=== PATIENT | male | born 1970 | race Caucasian/White ===

== ENCOUNTER 2022-02-12 20:17 | Observation (INO) | payer OTHER ==
[2022-02-12] MEDS ORDERED: IPRATROPIUM 0.5 MG/2.5 ML NEBU INHALATION STA ×2 (20:23→21:42)
[2022-02-12] MEDS ORDERED: DEXAMETHASONE SOD PHOSPHATE 10 MG/ML 1 ML VIAL IV STA (20:23)
[2022-02-12] MEDS ORDERED: ALBUTEROL NEBULIZED 2.5 MG/3 ML INHALATION STA ×2 (20:23→21:42)
[2022-02-12 20:31] LABS: Basophils # (A) 0.1 k/uL (0-0.2); Basophils % (A) 1 %; Eosinophils # (A) 0.5 k/uL (0-0.7); Eosinophils % (A) 7 %; HCT 47.6 % (39.0-53.0); HGB 15.7 gm/dL (13.0-17.5); Lymphocytes # (A) 1.5 k/uL (1.0-4.8); Lymphocytes % (A) 22 %; MCH 30.2 pg (25.0-35.0); MCV 91.5 fL (80.0-100.0); Mean Platelet Volume 8.8; Monocytes # (A) 0.6 k/uL (0-1.0); Monocytes % (A) 9 %; Neutrophils # (A) 3.8 k/uL (1.3-7.7); Neutrophils % (A) 57 %; Platelet Count 165 k/uL (150-450); RDW 13.5 % (11.5-15.5); WBC 6.7 k/uL (3.8-10.6)
--- NOTE | 2022-02-12 20:32 | ED ---
General Adult HPI - General Chief complaint: Shortness of Breath Stated complaint: RADHA Time Seen by Provider: 02/12/22 20:22 Source: patient Mode of arrival: ambulatory Limitations: no limitations - History of Present Illness Initial comments: Dictation was produced using [employer] dictation software. please excuse any grammatical, word or spelling errors. Chief Complaint: 62-year-old male past medical history of asthma and history of tobacco use presents to the ER for shortness of breath History of Present Illness: 52-year-old male who has past medical history of asthma. At home he uses albuterol inhalers and Symbicort. Patient denies any history of COPD. Over last 2-3 days she's been having worsening shortness of breath. Denies any fever. No chest pain. He has been coughing. His cough is nonproductive. He has been trying uses inhalers at home with no significant improvement. The ROS documented in this emergency department record has been reviewed and confirmed by me. Those systems with pertinent positive or negative responses have been documented in the HPI. All other systems are other negative and/or noncontributory. PHYSICAL EXAM: General Impression: Alert and oriented x3, dyspneic, audible wheezing HEENT: Normocephalic atraumatic, extra-ocular movements intact, pupils equal and reactive to light bilaterally, mucous membranes moist. Cardiovascular: Heart regular rate and rhythm Chest: 3-4 word sentences, tachypneic, significant wheezing diffusely Abdomen: abdomen soft, non-tender, non-distended, no organomegaly Musculoskeletal: Pulses present and equal in all extremities, no peripheral edema Motor: no focal deficits noted Neurological: CN II-XII grossly intact, no focal motor or sensory deficits noted Skin: Intact with no visualized rashes Psych: Normal affect and mood ED course: 52-year-old male presents emergency department for chief complaint of dyspnea. Vital signs upon arrival are within acceptable limits. Patient not hypoxic those oxygen levels are normal with supplemental oxygen. Point of care bedside ultrasound shows a line pattern suggesting COPD versus asthma exacerbati on. EKG interpretation: Ventricular rate 86, sinus rhythm,. Interval 108, QS 90, QTC 384. No GA prolongation, no QTC prolongation, no ST or T-wave changes noted. No old EKG for comparison. Overall, this EKG is unremarkable Laboratory evaluation obtained. CBC, coag panel unremarkable. Venous blood gas is within acceptable limits. Metabolic panel shows mild acidosis likely acidos is of 2.2. Glucose 72. For panel viral PCR is negative. Chest x-ray suggests right lower lobe pneumonia. Patient given a dose of ceftriaxone and azithromycin. Reevaluate bedside at 943 on to be improve medical condition. Still wheezing. Patient is agreeable for her second breathing treatment. Patient reevaluated after second breathing treatment. Still wheezing. Disposition options were discussed. Patient agreeable for observation admission for continued breathing treatments, pulmonary consultation and medical monitoring. She'll be admitted to [facility]. - Related Data Home Medications Medication Instructions Recorded Confirmed Albuterol Nebulized [Ventolin 2.5 mg INHALATION RT-BID 02/12/22 02/12/22 Nebulized] Budesonide-Formot 160-4.5 Mcg 2 puff INHALATION RT-BID 02/12/22 02/12/22 [Symbicort 160-4.5 Mcg Inhaler] Allergies Allergy/AdvReac Type Severity Reaction Status Date / Time No Known Allergies Allergy Verified 02/12/22 21:24 Review of Systems ROS Statement: Those systems with pertinent positive or pertinent negative responses have been documented in the HPI. ROS Other: All systems not noted in ROS Statement are negative. Past Medical History Past Medical History: Asthma Additional Past Medical History / Comment(s): MRSA History of Any Multi-Drug Resistant Organisms: MRSA Past Surgical History: Appendectomy Past Psychological History: No Psychological Hx Reported Smoking Status: Former smoker Past Alcohol Use History: None Reported Past Drug Use History: None Reported General Exam Limitations: no limitations Course Vital Signs 02/12/22 02/12/22 02/12/22 20:22 20:28 20:46 Pulse Rate 87 90 96 Respiratory 22 Rate Blood Pressure 136/109 O2 Sat by Pulse 100 Oximetry 02/12/22 02/12/22 02/12/22 21:00 22:06 22:21 Pulse Rate 67 84 Respiratory 24 Rate Blood Pressure O2 Sat by Pulse Oximetry Medical Decision Making - Lab Data Result diagrams: 02/12/22 20:26 02/12/22 20:26 Lab Results 02/12/22 02/12/22 02/12/22 Range/Units 20:26 20:26 20:26 WBC 6.7 (3.8-10.6) k/uL RBC 5.20 (4.30-5.90) m/uL Hgb 15.7 (13.0-17.5) gm/dL Hct 47.6 (39.0-53.0) % MCV 91.5 (80.0-100.0) fL MCH 30.2 (25.0-35.0) pg MCHC 33.0 (31.0-37.0) g/dL RDW 13.5 (11.5-15.5) % Plt Count 165 (150-450) k/uL MPV 8.8 Neutrophils % 57 % Lymphocytes % 22 % Monocytes % 9 % Eosinophils % 7 % Basophils % 1 % Neutrophils # 3.8 (1.3-7.7) k/uL Lymphocytes # 1.5 (1.0-4.8) k/uL Monocytes # 0.6 (0-1.0) k/uL Eosinophils # 0.5 (0-0.7) k/uL Basophils # 0.1 (0-0.2) k/uL PT 10.0 (9.0-12.0) sec INR 0.9 (<1.2) APTT 24.7 (22.0-30.0) sec VBG pH (7.31-7.41) VBG pCO2 (37-51) mmHg VBG HCO3 (24-28) mmol/L Sodium 139 (137-145) mmol/L Potassium 4.3 (3.5-5.1) mmol/L Chloride 104 (98-107) mmol/L Carbon Dioxide 20 L (22-30) mmol/L Anion Gap 15 mmol/L BUN 15 (9-20) mg/dL Creatinine 1.11 (0.66-1.25) mg/dL Est GFR (CKD-EPI)AfAm 88 (>60 ml/min/1.73 sqM) Est GFR (CKD-EPI)NonAf 76 (>60 ml/min/1.73 sqM) Glucose 72 L (74-99) mg/dL Plasma Lactic Acid Can (0.7-2.0) mmol/L Calcium 8.8 (8.4-10.2) mg/dL Magnesium 1.9 (1.6-2.3) mg/dL Troponin I (0.000-0.034) ng/mL NT-Pro-B Natriuret Pep pg/mL Influenza Type A (PCR) (Not Detectd) Influenza Type B (PCR) (Not Detectd) RSV (PCR) (Not Detectd) SARS-CoV-2 (PCR) (Not Detectd) 02/12/22 02/12/22 02/12/22 Range/Units 20:26 20:26 20:26 WBC (3.8-10.6) k/uL RBC (4.30-5.90) m/uL Hgb (13.0-17.5) gm/dL Hct (39.0-53.0) % MCV (80.0-100.0) fL MCH (25.0-35.0) pg MCHC (31.0-37.0) g/dL RDW (11.5-15.5) % Plt Count (150-450) k/uL MPV Neutrophils % % Lymphocytes % % Monocytes % % Eosinophils % % Basophils % % Neutrophils # (1.3-7.7) k/uL Lymphocytes # (1.0-4.8) k/uL Monocytes # (0-1.0) k/uL Eosinophils # (0-0.7) k/uL Basophils # (0-0.2) k/uL PT (9.0-12.0) sec INR (<1.2) APTT (22.0-30.0) sec VBG pH (7.31-7.41) VBG pCO2 (37-51) mmHg VBG HCO3 (24-28) mmol/L Sodium (137-145) mmol/L Potassium (3.5-5.1) mmol/L Chloride (98-107) mmol/L Carbon Dioxide (22-30) mmol/L Anion Gap mmol/L BUN (9-20) mg/dL Creatinine (0.66-1.25) mg/dL Est GFR (CKD-EPI)AfAm (>60 ml/min/1.73 sqM) Est GFR (CKD-EPI)NonAf (>60 ml/min/1.73 sqM) Glucose (74-99) mg/dL Plasma Lactic Acid Can 2.5 H* (0.7-2.0) mmol/L Calcium (8.4-10.2) mg/dL Magnesium (1.6-2.3) mg/dL Troponin I <0.012 (0.000-0.034) ng/mL NT-Pro-B Natriuret Pep 129 pg/mL Influenza Type A (PCR) (Not Detectd) Influenza Type B (PCR) (Not Detectd) RSV (PCR) (Not Detectd) SARS-CoV-2 (PCR) (Not Detectd) 02/12/22 02/12/22 Range/Units 20:34 20:34 WBC (3.8-10.6) k/uL RBC (4.30-5.90) m/uL Hgb (13.0-17.5) gm/dL Hct (39.0-53.0) % MCV (80.0-100.0) fL MCH (25.0-35.0) pg MCHC (31.0-37.0) g/dL RDW (11.5-15.5) % Plt Count (150-450) k/uL MPV Neutrophils % % Lymphocytes % % Monocytes % % Eosinophils % % Basophils % % Neutrophils # (1.3-7.7) k/uL Lymphocytes # (1.0-4.8) k/uL Monocytes # (0-1.0) k/uL Eosinophils # (0-0.7) k/uL Basophils # (0-0.2) k/uL PT (9.0-12.0) sec INR (<1.2) APTT (22.0-30.0) sec VBG pH 7.41 (7.31-7.41) VBG pCO2 35 L (37-51) mmHg VBG HCO3 22 L (24-28) mmol/L Sodium (137-145) mmol/L Potassium (3.5-5.1) mmol/L Chloride (98-107) mmol/L Carbon Dioxide (22-30) mmol/L Anion Gap mmol/L BUN (9-20) mg/dL Creatinine (0.66-1.25) mg/dL Est GFR (CKD-EPI)AfAm (>60 ml/min/1.73 sqM) Est GFR (CKD-EPI)NonAf (>60 ml/min/1.73 sqM) Glucose (74-99) mg/dL Plasma Lactic Acid Can (0.7-2.0) mmol/L Calcium (8.4-10.2) mg/dL Magnesium (1.6-2.3) mg/dL Troponin I (0.000-0.034) ng/mL NT-Pro-B Natriuret Pep pg/mL Influenza Type A (PCR) Not Detected (Not Detectd) Influenza Type B (PCR) Not Detected (Not Detectd) RSV (PCR) Not Detected (Not Detectd) SARS-CoV-2 (PCR) Not Detected (Not Detectd) Disposition Clinical Impression: COPD (chronic obstructive pulmonary disease) Disposition: ADMITTED IP TO THIS HOSP Condition: Fair Referrals: None,Stated [Primary Care Provider] - 1-2 days Decision Time: 22:41
[2022-02-12 20:41] LABS: INR 0.9 (<1.2); Partial Thromboplastin Time 24.7 sec (22.0-30.0)
[2022-02-12 20:43] LABS: Calcium 8.8 mg/dL (8.4-10.2); Magnesium 1.9 mg/dL (1.6-2.3); Potassium 4.3 mmol/L (3.5-5.1)
[2022-02-12 20:46] LABS: VBG PH 7.41 (7.31-7.41)
--- NOTE | 2022-02-12 21:39 | XR ---
EXAMINATION TYPE: XR chest 1V portable DATE OF EXAM: 02/12/2022 8:52 PM COMPARISON: None TECHNIQUE: XR chest 1V portable Frontal view of the chest. CLINICAL INDICATION:Male, 52 years old with history of wheezing; FINDINGS: Lungs/Pleura: Right lower lobe airspace opacities. There is no evidence of pleural effusion, or pneum othorax. Pulmonary vascularity: Unremarkable. Heart/mediastinum: Cardiomediastinal silhouette is unremarkable. Musculoskeletal: No acute osseous pathology. IMPRESSION: Subtle right lower lobe airspace opacities correlate for pneumonia
[2022-02-12] MEDS ORDERED: cefTRIAXone IN SWFI 1,000 MG/10 ML SYRINGE IVP STA (21:40)
[2022-02-12] MEDS ORDERED: NALOXONE 0.4 MG/ML 1 ML VIAL IVP PRN (22:38)
[2022-02-12] MEDS ORDERED: AZITHROMYCIN 500 MG TAB PO ONE (22:45)
[2022-02-12] MEDS ORDERED: SODIUM CHLORIDE 0.9% 1,000 ML IV STA (23:28)
[2022-02-12] MEDS ORDERED: SODIUM CHLORIDE 0.9% 1,000 ML IV ONE (23:29)
[2022-02-13] MEDS ORDERED: ALPRAZolam 0.25 MG TAB PO PRN (00:44)
--- NOTE | 2022-02-13 00:47 | P.HPIM ---
History of Present Illness H&P Date: 02/12/22 Chief Complaint: Difficulty in breathing 52-year-old male with asthma Patient normally uses albuterol inhaler twice a day and Symbicort every day. 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 He admits to tobacco smoking however he hasn't been able to smoke over the past 2 weeks as he was getting increasingly short of breath and over the past 3-5 days shortness of breath progressed rapidly and became very significant associated with cough productive of clear sputum he feels congested all the time and wheezy denies any fevers or chills denies any known sick contacts denies any hemoptysis denies any weight loss. Today his breathing got really bad severe shortness of breath and wheezing for which she decided to come to the hospital for evaluation. Patient does admit to recurrent episodes of pneumonia and history of coronary artery disease when he was young his early 20s which runs in the family He denies any recent travel or hospitalization denies any history of blood clots heart failure. Patient does have [id number] smoking history Workup in the ED chest x-ray showed possibility of suicidal changes on the x-ray suggestive of possible pneumonia, lactic acid was elevated Covid and influenza both negative Review of Systems Pertinent positives as noted in HPI. All other systems were reviewed and are negative Past Medical History Past Medical History: Asthma Additional Past Medical History / Comment(s): MRSA History of Any Multi-Drug Resistant Organisms: MRSA Past Surgical History: Appendectomy Past Psychological History: No Psychological Hx Reported Smoking Status: Former smoker Past Alcohol Use History: None Reported Past Drug Use History: None Reported - Past Family History Family Family Medical History: Coronary Artery Disease (CAD) Medications and Allergies Home Medications Medication Instructions Recorded Confirmed Type Albuterol Nebulized [Ventolin 2.5 mg INHALATION RT-BID 02/12/22 02/12/22 History Nebulized] Budesonide-Formot 160-4.5 Mcg 2 puff INHALATION RT-BID 02/12/22 02/12/22 History [Symbicort 160-4.5 Mcg Inhaler] Allergies Allergy/AdvReac Type Severity Reaction Status Date / Time No Known Allergies Allergy Verified 02/12/22 21:24 Physical Exam Vitals: Vital Signs Temp Pulse Resp BP Pulse Ox 02/12/22 23:34 98.9 F 84 20 135/77 99 02/12/22 22:21 84 02/12/22 22:06 67 02/12/22 21:00 24 02/12/22 20:46 96 02/12/22 20:28 90 02/12/22 20:22 87 22 136/109 100 Intake and Output 02/12/22 02/12/22 02/13/22 14:59 22:59 06:59 Other: Weight 86.183 kg Constitutional: No acute distress, difficulty finishing sentences due to shortness of breath Eyes: Anicteric sclerae, moist conjunctiva, Pupils equal round reactive to light ENMT: NC/AT Oropharynx clear, no erythema, or exudates Neck: Supple, FROM, no masses, or JVD No carotid bruits No thyromegaly Lungs: Diminished breath sounds throughout with both inspiratory and expiratory wheezing Clear to percussion Use of accessory muscles of respiration Cardiovascular: Heart regular in rate and rhythm, No murmurs, gallops, or rubs No peripheral edema Abdominal: Soft Nontender, no guarding, rebound or rigidity Abdomen moving with respiration Normoactive bowel sounds No hepatomegaly, No splenomegaly No palpable mass No abdominal wall hernia noted Skin: Normal temperature, tone, texture, turgor No induration No subcutaneous nodules No rash, lesions No ulcers Extremities: No digital cyanosis Pedal pulses intact and symmetrical Radial pulses intact and symmetrical No calf tenderness Psychiatric: Alert and oriented to person, place and time Appropriate affect fair judgement Neuro Muscles Strength 5/5 in all 4 extremities Sensation to light touch grossly present throughout Cranial nerves II-XII grossly intact No focal sensory deficits Lymphatics: no palpable cervical or supraclavicular , or inguinal lymph nodes Results CBC & Chem 7: 02/12/22 20:26 02/12/22 20:26 Labs: Abnormal Lab Results - Last 24 Hours (Table) 02/12/22 02/12/22 02/12/22 Range/Units 20:26 20:26 20:34 VBG pCO2 35 L (37-51) mmHg VBG HCO3 22 L (24-28) mmol/L Carbon Dioxide 20 L (22-30) mmol/L Glucose 72 L (74-99) mg/dL Plasma Lactic Acid Can 2.5 H* (0.7-2.0) mmol/L Assessment and Plan Assessment: Acute COPD exacerbation Possible tear of underlying pneumonia patient with history of recurrent pneumonia Follow-up cultures Initiated on antibiotics with azithromycin and Rocephin Inhalers when necessary as needed Continue Symbicort Systemic by mouth steroids Counseled to quit smoking, [id number] smoking Monitor vital signs Supplemental oxygen as needed Pulmonary consultation Chest x-ray reviewed Covid and influenza both negative Lactic acidosis IV fluid hydration Resolved DVT prophylaxis Lovenox Full code
[2022-02-13] MEDS: MELATONIN 3 MG TABLET PO SCH ×2 (00:59→21:28)
[2022-02-13] MEDS ORDERED: SYMBICORT 160-4.5 MCG INHALER INHALATION SCH (08:00)
[2022-02-13] MEDS: AZITHROMYCIN 500 MG TAB PO SCH (08:15)
[2022-02-13] MEDS: ENOXAPARIN 40 MG/0.4 ML SYRINGE SQ SCH (08:15)
[2022-02-13] MEDS: NICOTINE 14MG/24HR PATCH TRANSDERM SCH (08:15)
[2022-02-13] MEDS ORDERED: RX INFO: IV CONTRAST WAS GIVEN 1 EACH MISC MISCELLANE PRN (08:36)
[2022-02-13] MEDS: IPRATROPIUM-ALBUTEROL 3 ML NEB INHALATION SCH ×4 (08:58→21:11)
[2022-02-13] MEDS ORDERED: predniSONE 20 MG TAB PO SCH (09:00)
--- NOTE | 2022-02-13 10:40 | CT ---
EXAMINATION TYPE: CT chest w con DATE OF EXAM: 02/13/2022 COMPARISON: Chest x-ray 1022 HISTORY: H/O nodules RLL, smoker CT DLP: 549 mGycm Automated exposure control for dose reduction was used. TECHNIQUE: CT scan of the chest is performed with IV Contrast, patient injected with 70 mL of Isovue 300. MIP I mages are created on CT scanner and reviewed. 3D reconstructed images are created on an independent w orkstation and reviewed. FINDINGS: LUNGS: The lungs are grossly clear, there is no focal pneumonia. There is no pleural effusion or pn eumothorax seen. The tracheobronchial tree is patent. On axial image 35 within the medial margin sup erior segment of right upper lobe there are punctate 1 to 2 mm nodules which may represent tree-in-bu d pattern. Subpleural nodule measuring 4 mm right lower lobe likely 5 mm subpleural nodule left lower lobe posteriorly. Findings likely MEDIASTINUM: There are no greater than 1 cm hilar or mediastinal lymph nodes. No pericardial effusi on is seen. 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 Tiny amount of air vasculature likely iatrogenic. OTHER: No additional significant abnormality is seen. IMPRESSION: 1. There are 5 mm left subpleural nodules noted. Punctate 1 to 2 mm nodule medial margin superior seg ment right lower lobe too small to characterize may represent a tree-in-bud pattern. Associated with atypical mycobacterium correlate clinically. Findings are likely benign. A 6-12 weeks
--- NOTE | 2022-02-13 11:52 | P.CNPUL ---
History of Present Illness Consult date: 02/13/22 Requesting physician: Antionette Sprague Reason for consult: dyspnea, COPD Chief complaint: Shortness of breath, cough, congestion History of present illness: This is a very pleasant 52-year-old male patient with a known history of chronic and ongoing tobacco dependence of 30 years. No other major medical issues. No primary care provider. He states he did quit smoking 3 weeks ago. He was given Symbicort and albuterol inhalers at a previous hospitalization in [place]. He also stated he had a history of pulmonary nodules and was recommended a PET scan however this was approximately 2 years ago which she did not follow-up on. He recently moved back to this area. He presented to the emergency room yesterday with 2-3 day history of increasing shortness of breath, cough and congestion. Chest x-ray revealed a subtle right lower lobe airspace opacity. White count 6.7. Hemoglobin 15.7. Sodium 139. Potassium 4.3. BUN 15. Creatinine 1.11. Glucose 76. Troponin negative times one. ProBNP 129. Influenza screen negative. RSV screen negative. Current arise by PCR screen negative. Her calcitonin pending. Review of Systems REVIEW OF SYSTEMS: CONSTITUTIONAL: Denies any recent significant weight loss or weight gain. EYES: Denies change in vision. EARS, NOSE, MOUTH, THROAT: Denies headaches, denies sore throat. CARDIOVASCULAR: Denies chest pain, palpitations or syncopal episodes. RESPIRATORY: Positive for shortness of breath, cough, congestion no hemoptysis. GASTROINTESTINAL: Denies change in appetite, denies abdominal pain GENITOURINARY: Denies hematuria, denies infections. MUSKULOSKELETAL: Denies pain, denies swelling. INTEGUMENTARY: Denies rash, denies eczema. NEUROLOGICAL: Denies recent memory loss, no recent seizure activity. PSYCHIATRIC: Denies anxiety, denies depression. HEMATOLOGIC/LYMPHATIC: Denies anemia, denies enlarged lymph nodes. Past Medical History Past Medical History: Asthma Additional Past Medical History / Comment(s): MRSA History of Any Multi-Drug Resistant Organisms: MRSA Date of last positivie culture/infection: unknown MDRO Source:: lungs Past Surgical History: Appendectomy Past Psychological History: No Psychological Hx Reported Smoking Status: Former smoker Past Alcohol Use History: None Reported Past Drug Use History: None Reported - Past Family History Family Family Medical History: Coronary Artery Disease (CAD) Medications and Allergies Home Medications Medication Instructions Recorded Confirmed Type Albuterol Nebulized [Ventolin 2.5 mg INHALATION RT-BID 02/12/22 02/12/22 History Nebulized] Budesonide-Formot 160-4.5 Mcg 2 puff INHALATION RT-BID 02/12/22 02/12/22 History [Symbicort 160-4.5 Mcg Inhaler] Allergies Allergy/AdvReac Type Severity Reaction Status Date / Time No Known Allergies Allergy Verified 02/12/22 21:24 Physical Exam Vitals: Vital Signs Temp Pulse Pulse Resp BP BP Pulse Ox 02/13/22 09:08 68 02/13/22 08:59 64 02/13/22 08:18 16 96 02/13/22 07:00 97.6 F 51 L 20 130/80 99 02/13/22 00:47 97.8 F 67 18 155/74 99 02/12/22 23:34 98.9 F 84 20 135/77 99 02/12/22 22:21 84 02/12/22 22:06 67 02/12/22 21:00 24 02/12/22 20:46 96 02/12/22 20:28 90 02/12/22 20:22 87 22 136/109 100 Intake and Output 02/12/22 02/13/22 02/13/22 22:59 06:59 14:59 Other: # Voids 1 Weight 86.183 kg 86.183 kg GENERAL EXAM: Alert, very pleasant 52-year-old male patient, on 2 L nasal cannula, comfortable in no apparent distress. HEAD: Normocephalic. EYES: Normal reaction of pupils, equal size. NOSE: Clear with pink turbinates. THROAT: No erythema or exudates. NECK: No masses, no JVD. CHEST: No chest wall deformity. LUNGS: Equal air entry with bilateral end expiratory wheeze, diminished. CVS: S1 and S2 normal with no audible murmur, regular rhythm. ABDOMEN: No hepatosplenomegaly, normal bowel sounds, no guarding or rigidity. SPINE: No scoliosis or deformity SKIN: No rashes CENTRAL NERVOUS SYSTEM: No focal deficits, tone is normal in all 4 extremities. EXTREMITIES: There is no peripheral edema. No clubbing, no cyanosis. Peripheral pulses are intact. Results - Laboratory Findings CBC and BMP: 02/12/22 20:26 02/12/22 20:26 PT/INR, D-dimer PT 10.0 sec (9.0-12.0) 02/12/22 20:26 INR 0.9 (<1.2) 02/12/22 20:26 Abnormal lab findings: Abnormal Labs 02/12/22 02/12/22 02/12/22 20:26 20:26 20:34 VBG pCO2 35 L VBG HCO3 22 L Carbon Dioxide 20 L Glucose 72 L Plasma Lactic Acid Can 2.5 H* - Diagnostic Findings Chest x-ray: image reviewed Assessment and Plan Assessment: Acute hypoxemic respiratory failure secondary to suspected acute exacerbation of chronic obstructive pulmonary Chronic tobacco dependence of greater than 30 years History of pulmonary nodules with no recent follow-up Plan: The patient was seen and evaluated Chest x-ray, labs and medications reviewed Add Pulmicort and Perforomist inhalations, DuoNeb inhalations, IV Solu-Medrol Check a pro-calcitonin Computed tomography scan of the chest with contrast Educated regarding the importance of complete smoking cessation NicoDerm patch is applied He would benefit from a pulmonary function testing and COPD workup in the out patient setting We will continue to follow and make further recommendations based on his clinical status I have personally seen and examined the patient, performed the documentation and the assessment and plan as written. Number of minutes spent on the visit: 20.
[2022-02-13] MEDS: methylPREDNISolone SOD SUCCI 125 MG/2 ML VIAL IV SCH ×3 (12:16→23:17)
[2022-02-13] MEDS ORDERED: ACETAMINOPHEN TAB 325 MG TAB PO PRN (15:58)
[2022-02-13] MEDS ORDERED: IPRATROPIUM-ALBUTEROL 3 ML NEB INHALATION PRN (16:13)
--- NOTE | 2022-02-13 16:18 | P.PN ---
Subjective Progress Note Date: 02/13/22 Hospital course: Patient is a very pleasant 52-year-old male with a past medical history of asthma and COPD reporting former nicotine dependence stating he quit smoking 3 weeks ago. He presented to the emergency department with a chief complaint of shortness of breath. Upon arrival to our facility patient was found to be in acute respiratory distress requiring placement on oxygen at 15 L via nonrebreather mask. EKG was completed showing sinus rhythm at 86 bpm. Chest x- ray revealing subtle right lower lobe airspace opacities possible pneumonia. CBC, coags, and CMP unremarkable. Influenza A, influenza B, RSV, and Covid PCR were all negative. Physical exam: Patient was seen and fully evaluated at bedside this morning upon returning from CT. He reports feeling much better. Over the past 24 hours. He continues to have moderate diffuse bilateral expiratory wheezes throughout all lung hernández along with coarse nonproductive cough. Patient denied having any headache, lightheadedness, dizziness, chest pain, palpitations, or any other complaints at this time. Pending CT results. We will continue empiric antibiotics with azithromycin and Rocephin as unable to rule out community-acquired pneumonia. We will also continue with scheduled and as needed DuoNebs and Solu-Medrol. SpO2 currently 98% on 2 L, discussed with RN importance of weaning patient down off of oxygen. Vital signs reviewed and stable. General: Nontoxic, no distress and appears stated age. Derm: Skin warm and dry, normal coloration for ethnicity. Head: Atraumatic, normocephalic and symmetric. Eyes: EOMs intact, no lid lag, and anicteric sclera Mouth: no lip lesions, mucus membranes moist Cardiovascular: regular rate and rhythm with normal S1S2, no murmur, positive posterior tibial pulses bilaterally, and cap refill < 2 seconds. Lungs: Respirations even, regular, and unlabored on 2 L O2 via nasal cannula. Lungs with diffuse bilateral expiratory wheezes. no rhonchi, no rales, no crackles and no accessory muscle usage. Abdominal: soft, nontender to palpation, no guarding, no appreciable organomegaly Ext: ROM intact. No gross muscle atrophy, no edema, no contractures Neuro: Speech clear, face symmetrical and CN II-XII grossly intact with no noted focal neuro deficits Psych: Alert and oriented to person, place, time, and situation. Appropriate and pleasant affect. Assessment and Plan of Care: COPD with exacerbation Acute respiratory failure with hypoxia secondary to above -Pulmonology following, ordered CT to rule out possible lesion -Oxygenation to be administered and titrated as needed to maintain SPO2 equal to or greater than 92% -Telemetry monitoring. -Continuous Pulse-oximetry -Duonebs scheduled and as needed for SOB and/or wheezing -Incentive Spirometry -Steroids: Solu-Medrol -Antibiotics: Empiric antibiotics Azithromycin and Rocephin as on able to rule out community-acquired pneumonia at this time. Nicotine dependence -Patient reports 30+ year history of smoking. Reports quit "cold turkey" 3 weeks ago. -Patient to be encouraged and educated on the importance of sustaining complete cessation of nicotine use and the risks associated with continued use. CODE STATUS: Full code DVT prophylaxis: Lovenox Discussed with: Patient and RN Anticipated discharge date: 1-[address]: Home A total of 33 minutes was spent on the care of this complex patient more than 50% of the time was spent in counseling and care coordination. Objective - Vital Signs Vital signs: Vital Signs Temp 98.0 F 02/13/22 15:00 Pulse 77 02/13/22 15:00 Resp 20 02/13/22 15:00 BP 122/55 02/13/22 15:00 Pulse Ox 98 02/13/22 15:00 FiO2 Intake & Output 02/12/22 02/13/22 02/13/22 18:59 06:59 18:59 Weight 86.183 kg Other: # Voids 1 - Labs CBC & Chem 7: 02/12/22 20:26 02/12/22 20:26 Labs: Abnormal Lab Results - Last 24 Hours (Table) 02/12/22 02/12/22 02/12/22 Range/Units 20:26 20:26 20:34 VBG pCO2 35 L (37-51) mmHg VBG HCO3 22 L (24-28) mmol/L Carbon Dioxide 20 L (22-30) mmol/L Glucose 72 L (74-99) mg/dL Plasma Lactic Acid Can 2.5 H* (0.7-2.0) mmol/L Procalcitonin (0.02-0.09) ng/mL 02/13/22 Range/Units 09:21 VBG pCO2 (37-51) mmHg VBG HCO3 (24-28) mmol/L Carbon Dioxide (22-30) mmol/L Glucose (74-99) mg/dL Plasma Lactic Acid Can (0.7-2.0) mmol/L Procalcitonin 0.11 H (0.02-0.09) ng/mL
[2022-02-13 17:46] LABS: Glucose,Whole Blood 202 mg/dL (70-110)
[2022-02-13] MEDS: FORMOTEROL FUMARATE 20 MCG/2 ML NEBU INHALATION SCH (21:11)
[2022-02-13] MEDS: BUDESONIDE 1 MG/2 ML NEBU INHALATION SCH (21:11)
[2022-02-14] MEDS: methylPREDNISolone SOD SUCCI 125 MG/2 ML VIAL IV SCH ×3 (05:34→18:10)
[2022-02-14] MEDS: IPRATROPIUM-ALBUTEROL 3 ML NEB INHALATION SCH ×4 (07:31→20:29)
[2022-02-14] MEDS: BUDESONIDE 1 MG/2 ML NEBU INHALATION SCH ×2 (07:31→20:29)
[2022-02-14] MEDS: FORMOTEROL FUMARATE 20 MCG/2 ML NEBU INHALATION SCH ×2 (07:31→20:29)
[2022-02-14] MEDS: ENOXAPARIN 40 MG/0.4 ML SYRINGE SQ SCH (08:04)
[2022-02-14] MEDS: AZITHROMYCIN 500 MG TAB PO SCH (08:05)
[2022-02-14] MEDS: NICOTINE 14MG/24HR PATCH TRANSDERM SCH (08:07)
--- NOTE | 2022-02-14 08:28 | P.PN ---
Subjective Progress Note Date: 02/14/22 This is a very pleasant 52-year-old male patient with a known history of chronic and ongoing tobacco dependence of 30 years. No other major medical issues. No primary care provider. He states he did quit smoking 3 weeks ago. He was given Symbicort and albuterol inhalers at a previous hospitalization in [place]. He also stated he had a history of pulmonary nodules and was recommended a PET scan however this was approximately 2 years ago which she did not follow-up on. He recently moved back to this area. He presented to the emergency room yesterday with 2-3 day history of increasing shortness of breath, cough and congestion. Chest x-ray revealed a subtle right lower lobe airspace opacity. White count 6.7. Hemoglobin 15.7. Sodium 139. Potassium 4.3. BUN 15. Creatinine 1.11. Glucose 76. Troponin negative times one. ProBNP 129. Influenza screen negative. RSV screen negative. Current arise by PCR screen negative. Her calcitonin pending. The patient is seen today 02/14/2022 follow-up on the regular medical floor. He is currently sitting up in bed. Awake and alert in no acute distress. He still remains quite bronchospastic and wheezing. Slightly improved today compared to yesterday. Computed tomography scan of the chest revealed a 5 mm left subpleural nodule. Punctate 1-2 mm nodule medial margin superior segment of the right lower lobe to small to characterize. No other significant findings. He remains on DuoNeb inhalations, Pulmicort and Perforomist inhalations, IV Solu- Medrol. Empiric antibiotics in the form of ceftriaxone. Lovenox for DVT prophylaxis. Objective - Vital Signs Vital signs: Vital Signs Temp 97.6 F 02/14/22 02:36 Pulse 76 02/14/22 08:02 Resp 18 02/14/22 02:36 BP 134/64 02/14/22 02:36 Pulse Ox 96 02/14/22 02:36 FiO2 Intake & Output 02/13/22 02/14/22 02/14/22 18:59 06:59 18:59 Other: Voiding Method Toilet # Voids 1 3 - Exam GENERAL EXAM: Alert, pleasant 52-year-old male patient, on room air, comfortable in no apparent distress. HEAD: Normocephalic. EYES: Normal reaction of pupils, equal size. NOSE: Clear with pink turbinates. THROAT: No erythema or exudates. NECK: No masses, no JVD. CHEST: No chest wall deformity. LUNGS: Equal air entry with bilateral end expiratory wheeze, few scattered rhonchi. CVS: S1 and S2 normal with no audible murmur, regular rhythm. ABDOMEN: No hepatosplenomegaly, normal bowel sounds, no guarding or rigidity. SPINE: No scoliosis or deformity SKIN: No rashes CENTRAL NERVOUS SYSTEM: No focal deficits, tone is normal in all 4 extremities. EXTREMITIES: There is no peripheral edema. No clubbing, no cyanosis. Peripheral pulses are intact. - Labs CBC & Chem 7: 02/12/22 20:26 02/12/22 20:26 Labs: Abnormal Lab Results - Last 24 Hours (Table) 02/13/22 02/13/22 Range/Units 09:21 17:44 POC Glucose (mg/dL) 202 H (70-110) mg/dL Procalcitonin 0.11 H (0.02-0.09) ng/mL Assessment and Plan Assessment: Acute hypoxemic respiratory failure secondary to suspected acute exacerbation of chronic obstructive pulmonary Chronic tobacco dependence of greater than 30 years History of pulmonary nodules with no recent follow-up Plan: The patient was seen and evaluated CAT scan of medications reviewed Continue bronchodilators, IV Solu-Medrol Procalcitonin 0.11 Discontinue ceftriaxone, add Augmentin Probable discharge in the next 24-48 hour We will continue to follow I have personally seen and examined the patient, performed the documentation and the assessment and plan as written. Number of minutes spent on the visit: 10.
[2022-02-14 08:57] LABS: Basophils # (A) 0.01 X 10*3/uL (0.00-0.10); Basophils % (A) 0.1 %; Eosinophils # (A) 0 X 10*3/uL (0.04-0.35); Eosinophils % (A) 0 %; HCT 44.5 % (39.6-50.0); HGB 14.6 g/dL (13.0-17.0); Immature Grans, Automated 0.4 %; Lymphocytes # (A) 0.61 X 10*3/uL (0.90-5.00); Lymphocytes % (A) 4.1 %; MCH 30.2 pg (27.0-32.0); MCHC 32.8 g/dL (32.0-37.0); MCV 91.9 fL (80.0-97.0); Mean Platelet Volume 10.9 fL (9.5-12.2); Monocytes # (A) 0.44 X 10*3/uL (0.20-1.00); NRBC Per 100 WBC 0 /100 WBCS (0.0-0.0); Neutrophils # (A) 13.61 X 10*3/uL (1.80-7.70); Neutrophils % (A) 92.4 %; Platelet Count 160 X 10*3/uL (140-440); RBC 4.84 X 10*6/uL (4.40-5.60); RDW 13.2 % (11.5-14.5); WBC 14.73 X 10*3/uL (4.50-10.00)
[2022-02-14 09:04] LABS: ALT 14 U/L (10-49); AST 14 U/L (14-35); African American GFR (CKD) 99.8 (60.0-200.0); Albumin 3.8 g/dL (3.8-4.9); Alkaline Phosphatase 59 U/L (41-126); Blood Urea Nitrogen 14.7 mg/dL (9.0-27.0); Calcium 8.7 mg/dL (8.7-10.3); Chloride 104 mmol/L (96-109); Glucose 202 mg/dL (70-110); Non-African American GFR(CKD) 86.2 (60.0-200.0); Potassium 4.3 mmol/L (3.5-5.5); Sodium 138 mmol/L (135-145); Total Bilirubin <0.15 mg/dL (0.30-1.20); Total Protein 5.8 g/dL (6.2-8.2)
[2022-02-14] MEDS: AMOXIC-POT CLAV 875-125MG 1 EACH TAB PO SCH ×2 (10:17→20:40)
--- NOTE | 2022-02-14 10:30 | P.PN ---
Subjective Progress Note Date: 02/14/22 Hospital course: Patient is a very pleasant 52-year-old male with a past medical history of asthma and COPD reporting former nicotine dependence stating he quit smoking 3 weeks ago. He presented to the emergency department with a chief complaint of shortness of breath. Upon arrival to our facility patient was found to be in acute respiratory distress requiring placement on oxygen at 15 L via nonrebreather mask. EKG was completed showing sinus rhythm at 86 bpm. Chest x- ray revealing subtle right lower lobe airspace opacities possible pneumonia. CBC, coags, and CMP unremarkable. Influenza A, influenza B, RSV, and Covid PCR were all negative. CT revealed 5 mm subpleural nodules with punctate 1-2 mm nodule to the medial margin superior segment of right lower lobes too small to characterize possibly representing a tree-in-bud pattern associated with a typical Mycobacterium infection. pulmonology starting patient on Augmentin at this time. Physical exam: Patient was seen and fully evaluated at bedside this morning. He was resting comfortably in bed. He reported feeling much better and is currently on room air maintaining SpO2 of 94%. Patients lungs tight with diffuse bilateral expiratory wheezes, no noted improvement. Discussed with patient plan to continue steroids, scheduled nebulizer treatments as well as as needed nebulizer treatments at this time. pulmonology discontinued Rocephin and started patient on Augmentin. Vital signs reviewed and stable. General: Nontoxic, no distress and appears stated age. Derm: Skin warm and dry, normal coloration for ethnicity. Head: Atraumatic, normocephalic and symmetric. Eyes: EOMs intact, no lid lag, and anicteric sclera Mouth: no lip lesions, mucus membranes moist Cardiovascular: regular rate and rhythm with normal S1S2, no murmur, positive posterior tibial pulses bilaterally, and cap refill < 2 seconds. Lungs: Respirations even, regular, and unlabored on 2 L O2 via nasal cannula. Lungs tight with diffuse bilateral expiratory wheezes. no rhonchi, no rales, no crackles and no accessory muscle usage. Abdominal: soft, nontender to palpation, no guarding, no appreciable organomegaly Ext: ROM intact. No gross muscle atrophy, no edema, no contractures Neuro: Speech clear, face symmetrical and CN II-XII grossly intact with no noted focal neuro deficits Psych: Alert and oriented to person, place, time, and situation. Appropriate and pleasant affect. Assessment and Plan of Care: COPD with exacerbation Acute respiratory failure with hypoxia secondary to above -Pulmonology following, ordered CT to rule out possible lesion -Oxygenation to be administered and titrated as needed to maintain SPO2 equal to or greater than 92% -Telemetry monitoring. -Continuous Pulse-oximetry -Duonebs scheduled and as needed for SOB and/or wheezing -Incentive Spirometry -Steroids: Solu-Medrol -Antibiotics: Augmentin Nicotine dependence -Patient reports 30+ year history of smoking. Reports quit "cold turkey" 3 weeks ago. -Patient to be encouraged and educated on the importance of sustaining complete cessation of nicotine use and the risks associated with continued use. CODE STATUS: Full code DVT prophylaxis: Lovenox Discussed with: Patient and RN Anticipated discharge date: 1-[address]: Home A total of 35 minutes was spent on the care of this complex patient more than 5 0% of the time was spent in counseling and care coordination. Objective - Vital Signs Vital signs: Vital Signs Temp 97.4 F L 02/14/22 07:00 Pulse 76 02/14/22 08:02 Resp 18 02/14/22 07:00 BP 125/76 02/14/22 07:00 Pulse Ox 94 L 02/14/22 07:00 FiO2 Intake & Output 02/13/22 02/14/22 02/14/22 18:59 06:59 18:59 Other: Voiding Method Toilet # Voids 1 3 - Labs CBC & Chem 7: 02/14/22 05:44 02/14/22 05:44 Labs: Abnormal Lab Results - Last 24 Hours (Table) 02/13/22 02/13/22 Range/Units 09:21 17:44 POC Glucose (mg/dL) 202 H (70-110) mg/dL Procalcitonin 0.11 H (0.02-0.09) ng/mL
[2022-02-14 20:27] VITALS: RESP 18
[2022-02-14] MEDS: MELATONIN 3 MG TABLET PO SCH (20:40)
[2022-02-15] MEDS: methylPREDNISolone SOD SUCCI 125 MG/2 ML VIAL IV SCH ×3 (00:11→11:01)
[2022-02-15] MEDS: AMOXIC-POT CLAV 875-125MG 1 EACH TAB PO SCH (07:31)
[2022-02-15] MEDS: NICOTINE 14MG/24HR PATCH TRANSDERM SCH (07:32)
[2022-02-15] MEDS: ENOXAPARIN 40 MG/0.4 ML SYRINGE SQ SCH (07:32)
[2022-02-15] MEDS: FORMOTEROL FUMARATE 20 MCG/2 ML NEBU INHALATION SCH (07:38)
[2022-02-15] MEDS: BUDESONIDE 1 MG/2 ML NEBU INHALATION SCH (07:38)
[2022-02-15] MEDS: IPRATROPIUM-ALBUTEROL 3 ML NEB INHALATION SCH (07:38)
[2022-02-15 07:48] VITALS: BP 122/65; TEMP 97.7
[2022-02-15 08:14] VITALS: PULSE 64
[2022-02-15 08:51] LABS: HCT 43.5 % (39.6-50.0); HGB 14.5 g/dL (13.0-17.0); MCH 30.1 pg (27.0-32.0); MCHC 33.3 g/dL (32.0-37.0); MCV 90.4 fL (80.0-97.0); Mean Platelet Volume 10.7 fL (9.5-12.2); NRBC Per 100 WBC 0 /100 WBCS (0.0-0.0); Platelet Count 178 X 10*3/uL (140-440); RBC 4.81 X 10*6/uL (4.40-5.60); RDW 13.3 % (11.5-14.5)
[2022-02-15 09:15] LABS: ALT 13 U/L (10-49); AST 9 U/L (14-35); African American GFR (CKD) 95.2 (60.0-200.0); Albumin 3.8 g/dL (3.8-4.9); Albumin/Globulin Ratio 2.18 (1.60-3.17); Alkaline Phosphatase 60 U/L (41-126); BUN/Creat Ratio 20.29 Ratio (12.00-20.00); Blood Urea Nitrogen 21.1 mg/dL (9.0-27.0); Calcium 8.9 mg/dL (8.7-10.3); Carbon Dioxide 25.5 mmol/L (20.0-27.5); Chloride 103 mmol/L (96-109); Globulin 1.8 g/dL (1.6-3.3); Glucose 183 mg/dL (70-110); Non-African American GFR(CKD) 82.2 (60.0-200.0); Potassium 4.7 mmol/L (3.5-5.5); Sodium 139 mmol/L (135-145); Total Bilirubin <0.15 mg/dL (0.30-1.20); Total Protein 5.6 g/dL (6.2-8.2)
--- NOTE | 2022-02-15 11:40 | P.PN ---
Subjective Progress Note Date: 02/15/22 This is a very pleasant 52-year-old male patient with a known history of chronic and ongoing tobacco dependence of 30 years. No other major medical issues. No primary care provider. He states he did quit smoking 3 weeks ago. He was given Symbicort and albuterol inhalers at a previous hospitalization in [place]. He also stated he had a history of pulmonary nodules and was recommended a PET scan however this was approximately 2 years ago which she did not follow-up on. He recently moved back to this area. He presented to the emergency room yesterday with 2-3 day history of increasing shortness of breath, cough and congestion. Chest x-ray revealed a subtle right lower lobe airspace opacity. White count 6.7. Hemoglobin 15.7. Sodium 139. Potassium 4.3. BUN 15. Creatinine 1.11. Glucose 76. Troponin negative times one. ProBNP 129. Influenza screen negative. RSV screen negative. Current arise by PCR screen negative. Her calcitonin pending. The patient is seen today 02/14/2022 follow-up on the regular medical floor. He is currently sitting up in bed. Awake and alert in no acute distress. He still remains quite bronchospastic and wheezing. Slightly improved today compared to yesterday. Computed tomography scan of the chest revealed a 5 mm left subpleural nodule. Punctate 1-2 mm nodule medial margin superior segment of the right lower lobe to small to characterize. No other significant findings. He remains on DuoNeb inhalations, Pulmicort and Perforomist inhalations, IV Solu- Medrol. Empiric antibiotics in the form of ceftriaxone. Lovenox for DVT prophylaxis. The patient is seen today 02/15/2022 in follow-up on the regular medical floor. He is awake and alert in no acute distress. He is improved today compared to yesterday. He is maintaining good O2 saturations in the 90s on room air. No IV fluids. He's been continued on DuoNeb inhalations, Pulmicort and Perforomist inhalations along with IV Solu-Medrol. Antibiotics in the form of Augmentin. N icoDerm patch in place. Lovenox for DVT prophylaxis. White count 15.0. Hemoglobin 14.5. Sodium 139. Potassium 4.7. BUN 21. Creatinine 1.0. Glucose 183. AST 9. ALT 13. Objective - Vital Signs Vital signs: Vital Signs Temp 97.7 F 02/15/22 07:00 Pulse 64 02/15/22 08:11 Resp 18 02/15/22 07:00 BP 122/65 02/15/22 07:00 Pulse Ox 93 L 02/15/22 09:15 FiO2 Intake & Output 02/14/22 02/15/22 02/15/22 18:59 06:59 18:59 Other: Voiding Method Toilet Toilet Toilet # Voids 1 2 - Exam GENERAL EXAM: Alert, pleasant 52-year-old male patient, on room air, comfortable in no apparent distress. HEAD: Normocephalic. EYES: Normal reaction of pupils, equal size. NOSE: Clear with pink turbinates. THROAT: No erythema or exudates. NECK: No masses, no JVD. CHEST: No chest wall deformity. LUNGS: Equal air entry with bilateral end expiratory wheeze, diminished. CVS: S1 and S2 normal with no audible murmur, regular rhythm. ABDOMEN: No hepatosplenomegaly, normal bowel sounds, no guarding or rigidity. SPINE: No scoliosis or deformity SKIN: No rashes CENTRAL NERVOUS SYSTEM: No focal deficits, tone is normal in all 4 extremities. EXTREMITIES: There is no peripheral edema. No clubbing, no cyanosis. Peripheral pulses are intact. - Labs CBC & Chem 7: 02/15/22 05:11 02/15/22 05:11 Labs: Abnormal Lab Results - Last 24 Hours (Table) 02/15/22 02/15/22 Range/Units 05:11 05:11 WBC 15.00 H (4.50-10.00) X 10*3/uL BUN/Creatinine Ratio 20.29 H (12.00-20.00) Ratio Glucose 183 H (70-110) mg/dL Total Bilirubin <0.15 L (0.30-1.20) mg/dL AST 9 L (14-35) U/L Total Protein 5.6 L (6.2-8.2) g/dL Assessment and Plan Assessment: Acute hypoxemic respiratory failure secondary to suspected acute exacerbation of chronic obstructive pulmonary Chronic tobacco dependence of greater than 30 years History of pulmonary nodules with no recent follow-up. Computed tomography scan of the chest here revealed no significant findings Plan: The patient was seen and evaluated Stable and cleared for discharge from the pulmonary standpoint Continue on Symbicort, albuterol, prednisone taper starting at 40 mg daily for 4 days Again encouraged regarding the importance of complete smoking cessation To follow up with Dr. Del Valle in our office in 1 week for PFTs and further recommendations I have personally seen and examined the patient, performed the documentation and the assessment and plan as written. Number of minutes spent on the visit: 10.
--- NOTE | 2022-02-15 18:01 | P.DS ---
Providers Date of admission: 02/12/22 22:40 Expected date of discharge: 02/15/22 Attending physician: Antionette Sprague MD Consults: 02/12/22 22:38 Consult Physician Routine Consulting Provider: Dorian Del Valle Consult Reason/Comments: wheezing Do you want consulting provider notified?: Yes Primary care physician: Stated None Hospital Course: Discharge Diagnosis: COPD with acute exacerbation. CT revealed 5 mm subpleural nodules with punctate 1-2 mm nodule to the medial margin superior segment of right lower lobes too small to characterize possibly representing a tree-in-bud pattern associated with atypical Mycobacterium infection. pulmonology starting patient on Augmentin at this time. Patient underwent 3 night hospitalization for treatment of his pneumonia and acute COPD exacerbation. Patient improving daily. He was completely weaned off of oxygen and his wheezing and shortness of breath improved significantly. Patient was discharged home and was instructed to continue nebulizer treatments, complete prednisone taper, and was discharged home on an additional 4 days of Augmentin to total a treatment course as 7 days of antibiotics. Patient to follow up outpatient with PCP in 1-2 days and terminal block assembler in 1 week. Acute respiratory failure with hypoxia secondary to above. Patient weaned completely off oxygen. Ambulatory pulse ox 93% with ambulation/exertion on room air. Nicotine dependence Patient reports 30+ year history of smoking. Reports quit "cold turkey" 3 weeks ago. Patient to be encouraged and educated on the importance of sustaining complete cessation of nicotine use and the risks associated with continued use. Pulmonary nodule, CT states to small to care to rise. Recommend following up [facility] terminal block assembler for repeat CT once treatment of pneumonia and acute COPD exacerbation is completed. Hospital Course: Patient is a very pleasant 52-year-old male with a past medical history of asthma and COPD reporting former nicotine dependence stating he quit smoking 3 weeks ago. He presented to the emergency department with a chief complaint of shortness of breath. Upon arrival to our facility patient was found to be in acute respiratory distress requiring placement on oxygen at 15 L via nonrebreather mask. EKG was completed showing sinus rhythm at 86 bpm. Chest x- ray revealing subtle right lower lobe airspace opacities possible pneumonia. CBC, coags, and CMP unremarkable. Influenza A, influenza B, RSV, and Covid PCR were all negative. CT revealed 5 mm subpleural nodules with punctate 1-2 mm nodule to the medial margin superior segment of right lower lobes too small to characterize possibly representing a tree-in-bud pattern associated with atypical Mycobacterium infection. pulmonology starting patient on Augmentin at this time. Patient underwent 3 night hospitalization for treatment of his pneumonia and acute COPD exacerbation. Patient improving daily. He was completely weaned off of oxygen and his wheezing and shortness of breath improved significantly. Patient is medically stable for discharge home at this time. He was instructed to continue nebulizer treatments, complete prednisone taper, and was discharged home on an additional 4 days of Augmentin to total a treatment course as 7 days of antibiotics. Patient to follow up outpatient with PCP in 1-2 days and terminal block assembler in 1 week. Patient encouraged to continue to sustain from all nicotine use. Physical exam: Vital signs reviewed and stable. General: Nontoxic, no distress and appears stated age. Derm: Skin warm and dry, normal coloration for ethnicity. Head: Atraumatic, normocephalic and symmetric. Eyes: EOMs intact, no lid lag, and anicteric sclera Mouth: no lip lesions, mucus membranes moist Cardiovascular: regular rate and rhythm with normal S1S2, no murmur, positive posterior tibial pulses bilaterally, and cap refill < 2 seconds. Lungs: Respirations even, regular, and unlabored on room air. Lungs with significant improvement in airflow, minimal expiratory wheezes. No rhonchi, no rales, no crackles and no accessory muscle usage. Abdominal: soft, nontender to palpation, no guarding, no appreciable organomegaly Ext: ROM intact. No gross muscle atrophy, no edema, no contractures Neuro: Speech clear, face symmetrical and CN II-XII grossly intact with no noted focal neuro deficits Psych: Alert and oriented to person, place, time, and situation. Appropriate and pleasant affect. A total of 32 minutes of time were spent preparing this complex discharge summary. Pt was discharged on 02/15/22 at 12:26 PM. I reviewed the documentation as provided by the DAYAN above, who is the original author of this note. I agree with the documented assessment and plan, with the following changes: none Patient Condition at Discharge: Stable Plan - Discharge Summary New Discharge Prescriptions: New predniSONE See Taper PO DIRECTED 12 Days #30 tab Amoxic-Pot Clav 875-125Mg [Augmentin 875-125] 1 each PO Q12HR 4 Days #8 tab Continue Budesonide-Formot 160-4.5 Mcg [Symbicort 160-4.5 Mcg Inhaler] 2 puff INHALATION RT-BID Albuterol Nebulized [Ventolin Nebulized] 2.5 mg INHALATION RT-BID Discharge Medication List Albuterol Nebulized [Ventolin Nebulized] 2.5 mg INHALATION RT-BID 02/12/22 [History] Budesonide-Formot 160-4.5 Mcg [Symbicort 160-4.5 Mcg Inhaler] 2 puff INHALATION RT-BID 02/12/22 [History] Amoxic-Pot Clav 875-125Mg [Augmentin 875-125] 1 each PO Q12HR 4 Days #8 tab 02/15/22 [Rx] predniSONE See Taper PO DIRECTED 12 Days #30 tab 02/15/22 [Rx] Follow up Appointment(s)/Referral(s): Tom Yee MD [REFERRING] - 3 Days Dorian Del Valle DO [Doctor of Osteopathic Medicine] - 1 Week Patient Instructions/Handouts: COPD (Chronic Obstructive Pulmonary Disease) (DC) Activity/Diet/Wound Care/Special Instructions: Activity: As tolerated. Take breaks as needed. Diet: Heart healthy and carb consistent diet. Avoid salts, or foods with hidden salts such as canned or boxed foods and frozen dinners. Extra salt makes your heart work harder and traps the fluid in your body for longer. Special Instructions: Take all of your medications as directed and remember to keep all of your doctor's appointments and follow-up as needed. You will need to follow up with terminal block assembler for repeat CT in the future to follow-up on pulmonary nodules too small to characterize after treatment of pneumonia and acute COPD exacerbation is completed. Thank you for allowing us to participate in your care, it was truly a pleasure having you for our patient!!! Discharge Disposition: HOME SELF-CARE
== END 2022-02-15 12:35 | disposition home or self-care (01) ==
LOC: EC 20:17 → 6NMEDSUR 22:40
PROVIDERS: ADMIT Internal Medicine; ATTEND Internal Medicine
DX: J44.1 Chronic obstructive pulmonary disease with (acute) exacerbation (principal); J96.01 Acute respiratory failure with hypoxia; E87.20 Acidosis, unspecified; R91.8 Other nonspecific abnormal finding of lung field; I25.10 Atherosclerotic heart disease of native coronary artery without angina pectoris; F17.200 Nicotine dependence, unspecified, uncomplicated; Z79.51 Long term (current) use of inhaled steroids; Z20.822 Contact with and (suspected) exposure to COVID-19; Z82.49 Family history of ischemic heart disease and other diseases of the circulatory system; Z87.01 Personal history of pneumonia (recurrent); Z79.899 Other long term (current) drug therapy
CPT/HCPCS: 96376 ×4; 96365; 96372 ×2; 96375 ×2; 99285; 36415; 94640 ×7; 94644; 93005; 83880; 80053 ×2; 80048; 82803; 83605; 83735; 84484; 85025 ×2; 85027; 85610; 85730; 84145; 87636; 71045; 71260; G0378 ×4; S4990; J1100; J2930 ×3; J0696 ×2; J1650 ×2; J7512; Q9967; 94645

== ENCOUNTER 2022-04-07 12:52 | Inpatient (IN) | payer OTHER ==
[2022-04-07] MEDS ORDERED: methylPREDNISolone SOD SUCCI 125 MG/2 ML VIAL IV STA (13:12)
[2022-04-07] MEDS ORDERED: IPRATROPIUM-ALBUTEROL 3 ML NEB INHALATION STA ×3 (13:12→13:32)
[2022-04-07] MEDS ORDERED: ONDANSETRON 4 MG/2 ML VIAL IVP STA (13:26)
[2022-04-07] MEDS ORDERED: diphenhydrAMINE 50 MG/ML 1 ML VIAL IVP STA (13:26)
[2022-04-07 13:32] LABS: Basophils # (A) 0.1 k/uL (0-0.2); Basophils % (A) 0 %; Eosinophils # (A) 0.1 k/uL (0-0.7); Eosinophils % (A) 1 %; HCT 42.4 % (39.0-53.0); HGB 15.2 gm/dL (13.0-17.5); Lymphocytes % (A) 5 %; MCH 31.7 pg (25.0-35.0); MCHC 35.9 g/dL (31.0-37.0); MCV 88.3 fL (80.0-100.0); Mean Platelet Volume 9.3; Monocytes % (A) 5 %; Neutrophils # (A) 17.3 k/uL (1.3-7.7); Neutrophils % (A) 88 %; Platelet Count 163 k/uL (150-450); RDW 13.4 % (11.5-15.5); WBC 19.7 k/uL (3.8-10.6)
[2022-04-07 13:40] LABS: Partial Thromboplastin Time 26.1 sec (22.0-30.0); Prothrombin Time 11.1 sec (9.0-12.0)
[2022-04-07 13:42] LABS: Albumin 4.2 g/dL (3.5-5.0); Calcium 8.8 mg/dL (8.4-10.2); Magnesium 1.5 mg/dL (1.6-2.3); Potassium 4.2 mmol/L (3.5-5.1); Total Bilirubin 1.4 mg/dL (0.2-1.3); Total Protein 6.3 g/dL (6.3-8.2)
--- NOTE | 2022-04-07 14:04 | XR ---
EXAMINATION TYPE: XR chest 2V DATE OF EXAM: 04/07/2022 COMPARISON: 02/12/2022 HISTORY: Difficulty breathing TECHNIQUE: Frontal and lateral views of the chest are obtained. FINDINGS: There is no focal air space opacity, pleural effusion, or pneumothorax seen. The cardiac silhouette size is within normal limits. The osseous structures are intact. IMPRESSION: No acute cardiopulmonary process.
[2022-04-07] MEDS ORDERED: Magnesium Replacement Protocol 1 EACH MISC MISCELLANE PRN (14:08)
[2022-04-07] MEDS: MAGNESIUM SULFATE-D5W PMX 1 GM in DEXTROSE/WATER 1 100ML.BAG IVPB SCH ×2 (14:24→15:33)
[2022-04-07] MEDS ORDERED: IPRATROPIUM-ALBUTEROL 3 ML NEB INHALATION PRN (14:54)
[2022-04-07] MEDS ORDERED: NALOXONE 0.4 MG/ML 1 ML VIAL IVP PRN (14:54)
--- NOTE | 2022-04-07 15:37 | ED ---
General Adult HPI - General Chief complaint: Shortness of Breath Stated complaint: RADHA Time Seen by Provider: 04/07/22 13:08 Source: patient Mode of arrival: wheelchair Limitations: no limitations - History of Present Illness Initial comments: Patient is a 52-year-old male presenting with chief complaint of difficulty breathing. Patient has history of COPD, was recently admitted here for COPD. Patient states he has not had a cigarette in the last month. He states that last night he began experiencing shortness of breath. It was worsening today. There is associated chest discomfort and tightness. He admits to nonproductive cough. He admits to chills, has not taken his temperature. No abdominal pain, nausea, vomiting. No headache, vision or hearing changes, confusion. No congestion, sore throat, difficulty swallowing. - Related Data Home Medications Medication Instructions Recorded Confirmed Albuterol Nebulized [Ventolin 2.5 mg INHALATION RT-BID 02/12/22 04/07/22 Nebulized] Budesonide-Formot 160-4.5 Mcg 2 puff INHALATION RT-BID 02/12/22 04/07/22 [Symbicort 160-4.5 Mcg Inhaler] Allergies Allergy/AdvReac Type Severity Reaction Status Date / Time No Known Allergies Allergy Verified 04/07/22 15:44 Review of Systems ROS Statement: Those systems with pertinent positive or pertinent negative responses have been documented in the HPI. ROS Other: All systems not noted in ROS Statement are negative. Past Medical History Past Medical History: Asthma, COPD Additional Past Medical History / Comment(s): MRSA History of Any Multi-Drug Resistant Organisms: MRSA Date of last positivie culture/infection: unknown MDRO Source:: lungs Past Surgical History: Appendectomy Past Psychological History: No Psychological Hx Reported Smoking Status: Former smoker Past Alcohol Use History: None Reported Past Drug Use History: None Reported - Past Family History Family Family Medical History: Coronary Artery Disease (CAD) mother Family Medical History: COPD General Exam Limitations: no limitations General appearance: alert Head exam: Present: atraumatic, normocephalic, normal inspection Eye exam: Present: normal appearance Neck exam: Present: normal inspection, full ROM Respiratory exam: Present: wheezes, rhonchi, accessory muscle use Cardiovascular Exam: Present: regular rate, normal rhythm, normal heart sounds. Absent: systolic murmur, diastolic murmur, rubs, gallop, clicks Neurological exam: Present: alert, oriented X3, CN II-XII intact Psychiatric exam: Present: normal affect, normal mood Skin exam: Present: warm, dry, intact, normal color. Absent: rash Course Vital Signs 04/07/22 04/07/22 04/07/22 12:57 13:09 13:31 Temperature 98.9 F Pulse Rate 94 101 H 94 Respiratory 16 24 Rate Blood Pressure 113/73 143/71 O2 Sat by Pulse 93 L 94 L Oximetry 04/07/22 04/07/22 04/07/22 13:40 15:34 15:41 Temperature Pulse Rate 90 73 74 Respiratory 15 Rate Blood Pressure 122/70 O2 Sat by Pulse 96 Oximetry 04/07/22 04/07/22 15:49 18:09 Temperature Pulse Rate 76 71 Respiratory 20 Rate Blood Pressure 145/79 O2 Sat by Pulse 96 Oximetry EKG Findings - EKG Comments: EKG Findings:: EKG interpreted by me sinus rhythm ventricular rate 98. OH intervals 140. QRS 89. QT 336. QTC 391. Normal axis. No ST deviation or T- wave inversion. This EKG was also interpreted by my attending Dr. Reddy Medical Decision Making - Medical Decision Making Patient is a 52-year-old male with history of tobacco use and COPD presenting with chief complaint of difficulty breathing. Symptoms started last night, admits to chest tightness. On examination there are diffuse wheezes and rhonchi. Patient's O2 is 93% on room air. Solu-Medrol and DuoNeb breathing treatment ordered. Patient started having vomiting and increased difficulty breathing upon immediate administration of Solu-Medrol, he was given Zofran and Benadryl. Symptoms subsided. On internal cause drowsiness. WBC 19.7, likely reactive. Troponin less than 0.012, EKG shows no ischemic changes. Magnesium is 1.5, started replacement here in the ER. He is negative for influenza, RSV, and Covid. Chest x-ray shows no acute process. Patient will be admitted for COPD exacerbation. I spoke with the [facility] physician on-call who accepted admission. I discussed this case with my attending Dr. Reddy - Lab Data Result diagrams: 04/07/22 13:06 04/07/22 13:06 Lab Results 04/07/22 04/07/22 04/07/22 Range/Units 13:06 13:06 13:06 WBC 19.7 H (3.8-10.6) k/uL RBC 4.80 (4.30-5.90) m/uL Hgb 15.2 (13.0-17.5) gm/dL Hct 42.4 (39.0-53.0) % MCV 88.3 (80.0-100.0) fL MCH 31.7 (25.0-35.0) pg MCHC 35.9 (31.0-37.0) g/dL RDW 13.4 (11.5-15.5) % Plt Count 163 (150-450) k/uL MPV 9.3 Neutrophils % 88 % Lymphocytes % 5 % Monocytes % 5 % Eosinophils % 1 % Basophils % 0 % Neutrophils # 17.3 H (1.3-7.7) k/uL Lymphocytes # 1.0 (1.0-4.8) k/uL Monocytes # 1.0 (0-1.0) k/uL Eosinophils # 0.1 (0-0.7) k/uL Basophils # 0.1 (0-0.2) k/uL PT 11.1 (9.0-12.0) sec INR 1.0 (<1.2) APTT 26.1 (22.0-30.0) sec Sodium 134 L (137-145) mmol/L Potassium 4.2 (3.5-5.1) mmol/L Chloride 102 (98-107) mmol/L Carbon Dioxide 24 (22-30) mmol/L Anion Gap 8 mmol/L BUN 16 (9-20) mg/dL Creatinine 1.11 (0.66-1.25) mg/dL Est GFR (CKD-EPI)AfAm 88 (>60 ml/min/1.73 sqM) Est GFR (CKD-EPI)NonAf 76 (>60 ml/min/1.73 sqM) Glucose 136 H (74-99) mg/dL Plasma Lactic Acid Can (0.7-2.0) mmol/L Calcium 8.8 (8.4-10.2) mg/dL Magnesium 1.5 L (1.6-2.3) mg/dL Total Bilirubin 1.4 H (0.2-1.3) mg/dL AST 17 (17-59) U/L ALT 15 (4-49) U/L Alkaline Phosphatase 60 (38-126) U/L Troponin I (0.000-0.034) ng/mL Total Protein 6.3 (6.3-8.2) g/dL Albumin 4.2 (3.5-5.0) g/dL Influenza Type A (PCR) (Not Detectd) Influenza Type B (PCR) (Not Detectd) RSV (PCR) (Not Detectd) SARS-CoV-2 (PCR) (Not Detectd) 04/07/22 04/07/22 04/07/22 Range/Units 13:06 13:06 13:17 WBC (3.8-10.6) k/uL RBC (4.30-5.90) m/uL Hgb (13.0-17.5) gm/dL Hct (39.0-53.0) % MCV (80.0-100.0) fL MCH (25.0-35.0) pg MCHC (31.0-37.0) g/dL RDW (11.5-15.5) % Plt Count (150-450) k/uL MPV Neutrophils % % Lymphocytes % % Monocytes % % Eosinophils % % Basophils % % Neutrophils # (1.3-7.7) k/uL Lymphocytes # (1.0-4.8) k/uL Monocytes # (0-1.0) k/uL Eosinophils # (0-0.7) k/uL Basophils # (0-0.2) k/uL PT (9.0-12.0) sec INR (<1.2) APTT (22.0-30.0) sec Sodium (137-145) mmol/L Potassium (3.5-5.1) mmol/L Chloride (98-107) mmol/L Carbon Dioxide (22-30) mmol/L Anion Gap mmol/L BUN (9-20) mg/dL Creatinine (0.66-1.25) mg/dL Est GFR (CKD-EPI)AfAm (>60 ml/min/1.73 sqM) Est GFR (CKD-EPI)NonAf (>60 ml/min/1.73 sqM) Glucose (74-99) mg/dL Plasma Lactic Acid Can 1.3 (0.7-2.0) mmol/L Calcium (8.4-10.2) mg/dL Magnesium (1.6-2.3) mg/dL Total Bilirubin (0.2-1.3) mg/dL AST (17-59) U/L ALT (4-49) U/L Alkaline Phosphatase (38-126) U/L Troponin I <0.012 (0.000-0.034) ng/mL Total Protein (6.3-8.2) g/dL Albumin (3.5-5.0) g/dL Influenza Type A (PCR) Not Detected (Not Detectd) Influenza Type B (PCR) Not Detected (Not Detectd) RSV (PCR) Not Detected (Not Detectd) SARS-CoV-2 (PCR) Not Detected (Not Detectd) Disposition Clinical Impression: COPD exacerbation Disposition: ADMITTED IP TO THIS [facility] Condition: Fair Time of Disposition: 15:37 Decision to Admit Reason: Admit from EC Decision Date: 04/07/22 Decision Time: 15:37
[2022-04-07] MEDS: IPRATROPIUM-ALBUTEROL 3 ML NEB INHALATION SCH ×2 (15:40→19:20)
[2022-04-07] MEDS ORDERED: ACETAMINOPHEN TAB 325 MG TAB PO PRN (15:42)
[2022-04-07] MEDS ORDERED: ALBUTEROL NEBULIZED 2.5 MG/3 ML INHALATION PRN (15:42)
[2022-04-07] MEDS ORDERED: BENZONATATE 100 MG CAP PO PRN (15:42)
[2022-04-07] MEDS ORDERED: ONDANSETRON 4 MG/2 ML VIAL IVP PRN (15:42)
--- NOTE | 2022-04-07 15:47 | P.HPIM ---
History of Present Illness H&P Date: 04/07/22 Patient is a 52-year-old male with COPD and prior tobacco abuse who presented to the emergency department with complaints of shortness of breath. On arrival to the ER he underwent an extensive evaluation. His vital signs were within normal limits on admission. Laboratory analysis was remarkable for a white blood cell count of 19.7, sodium 134, magnesium 1.5, bilirubin 1.4. Testing for influenza, COVID-19, and RSV was negative. Chest x-ray demonstrated no acute process. In the ER he received albuterol 3 as well as Solu-Medrol. Magnesium replacement was initiated. Arrangements were made for admission. Of note patient was hospitalized here from 03/02 through 02/15/22 for acute exacerbation of COPD. He was discharged home on a steroid taper as well as Augmentin. During that stay he was noted to have pulmonary nodules too small to characterize on CT was recommended for outpatient follow-up with Dr. Del Valle. Patient seen and examined at bedside. He reports that he was in his normal state of health until about 11 PM last night. 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 He got sudden onset shortness of breath with wheezing and coughing. He did take some breathing treatments at home but did not respond. He then developed some chest tightness that was worse with coughing and swallowing. He denies any recent cough, cold, fever, flu prior to this. After discharge last time he was supposed to follow up with Dr. Del Valle but there was some confusion with his appointment. Had to get rescheduled. He has not seen a primary or sheriff officer since last discharge. He reports that he ran out of his Symbicort inhaler at home. He is exposed to heavy chemicals on a daily basis as he has a taxidermist. This happened was he was preparing a dear head yesterday. Pertinent positives and negatives as discussed in HPI, a complete review of systems was performed and all other systems are negative. Vital signs reviewed General: nontoxic, no distress, appears at stated age Derm: warm, dry Head: atraumatic, normocephalic, symmetric Eyes: EOMI, no lid lag, anicteric sclera, pupils equal round reactive to light ENT: Nose and ears atraumatic, no thrush, no pharyngeal erythema Neck: No thyromegaly, no cervical lymphadenopathy, trachea midline, supple Mouth: no lip lesion, mucus membranes moist Cardiovascular: S1S2 reg, no murmur, positive posterior tibial pulse bilateral, no edema, capillary refill less than 2 seconds, pain to palpation over right chest wall Lungs: Diffuse wheezing bilaterally, 3 word conversational dyspnea, no accessory muscle use Abdominal: soft, nontender to palpation, no guarding, no appreciable organomegaly, normal bowel sounds Ext: no gross muscle atrophy, muscle strength 5 out of 5 in all 4 extremities, no contractures Neuro: CN II-XII grossly intact, light touch intact all 4 extremities, finger to nose within normal limits, Psych: Lethargic, oriented, appropriate affect Assessment/Plan: Acute exacerbation of COPD Probable acute ALLERGIC reaction -Continue with steroids, bronchodilators, pulmonary hygiene -Consult pulmonary -Stat VBG -Patient may benefit from outpatient ALLERGY testing as he had sudden onset of symptoms when dealing with a wild animal carcass which could have pollen, bird or other danders. Hypomagnesemia -Replace and recheck in a.m. Leukocytosis -Suspect reactive -Repeat CBC in a.m. The patient is admitted with an anticipated greater than 2 midnight stay for evaluation of acute exacerbation of COPD. Surrogate decision-maker: Sisters CODE STATUS: Full, would not like prolonged mechanical ventilation DVT prophylaxis: Lovenox Discussed with: Patient, nursing, ER provider Anticipated discharge date: In 2-[address]: Home A total of 65 minutes was spent on the care of this complex patient more than 50% of the time was spent in counseling and care coordination. Past Medical History Past Medical History: Asthma, COPD Additional Past Medical History / Comment(s): MRSA History of Any Multi-Drug Resistant Organisms: MRSA Date of last positivie culture/infection: unknown MDRO Source:: lungs Past Surgical History: Appendectomy Past Psychological History: No Psychological Hx Reported Smoking Status: Former smoker Past Alcohol Use History: None Reported Past Drug Use History: None Reported - Past Family History Family Family Medical History: Coronary Artery Disease (CAD) mother Family Medical History: COPD Medications and Allergies Home Medications Medication Instructions Recorded Confirmed Type Albuterol Nebulized [Ventolin 2.5 mg INHALATION RT-BID 02/12/22 02/12/22 History Nebulized] Budesonide-Formot 160-4.5 Mcg 2 puff INHALATION RT-BID 02/12/22 02/12/22 History [Symbicort 160-4.5 Mcg Inhaler] Allergies Allergy/AdvReac Type Severity Reaction Status Date / Time No Known Allergies Allergy Verified 04/07/22 15:44 Physical Exam Osteopathic Statement: *. No significant issues noted on an osteopathic structural exam other than those noted in the History and Physical/Consult. Vitals: Vital Signs Temp Pulse Resp BP Pulse Ox 04/07/22 15:41 74 04/07/22 15:34 73 15 122/70 96 04/07/22 13:40 90 04/07/22 13:31 94 04/07/22 13:09 101 H 24 143/71 94 L 04/07/22 12:57 98.9 F 94 16 113/73 93 L Intake and Output 04/07/22 04/07/22 04/07/22 06:59 14:59 22:59 Other: Weight 86.183 kg Results CBC & Chem 7: 04/07/22 13:06 04/07/22 13:06 Labs: Abnormal Lab Results - Last 24 Hours (Table) 04/07/22 04/07/22 Range/Units 13:06 13:06 WBC 19.7 H (3.8-10.6) k/uL Neutrophils # 17.3 H (1.3-7.7) k/uL Sodium 134 L (137-145) mmol/L Glucose 136 H (74-99) mg/dL Magnesium 1.5 L (1.6-2.3) mg/dL Total Bilirubin 1.4 H (0.2-1.3) mg/dL
[2022-04-07 16:22] LABS: VBG PH 7.41 (7.31-7.41)
[2022-04-07 17:53] LABS: Appearance,Urine Clear (Clear); Bilirubin,Urine Negative (Negative); Blood,Urine Negative (Negative); Color,Urine Light Yellow; Glucose,Urine (UA) Negative (Negative); Ketones,Urine Negative (Negative); Leukocyte Esterase,Urine Negative (Negative); Nitrite,Urine Negative (Negative); Protein,Urine Negative (Negative); Urobilinogen,Urine <2.0 mg/dL (<2.0)
[2022-04-07] MEDS: methylPREDNISolone SOD SUCCI 125 MG/2 ML VIAL IV SCH ×2 (18:14→23:38)
[2022-04-07] MEDS: BUDESONIDE 0.5 MG/2 ML NEBU INHALATION SCH (19:20)
[2022-04-07] MEDS: FORMOTEROL FUMARATE 20 MCG/2 ML NEBU INHALATION SCH (19:30)
[2022-04-07] MEDS: guaiFENesin 600 MG TABLET.ER PO SCH (20:06)
[2022-04-07] MEDS: FAMOTIDINE 20 MG TAB PO SCH (20:06)
[2022-04-08] MEDS: methylPREDNISolone SOD SUCCI 125 MG/2 ML VIAL IV SCH ×4 (05:55→23:09)
[2022-04-08] MEDS: IPRATROPIUM-ALBUTEROL 3 ML NEB INHALATION SCH ×4 (06:58→19:39)
[2022-04-08] MEDS: FORMOTEROL FUMARATE 20 MCG/2 ML NEBU INHALATION SCH ×2 (06:58→19:39)
[2022-04-08] MEDS: BUDESONIDE 0.5 MG/2 ML NEBU INHALATION SCH (06:58)
[2022-04-08 08:45] LABS: Basophils % (A) 0 %; Eosinophils % (A) 0 %; HCT 44.4 % (39.0-53.0); HGB 15.1 gm/dL (13.0-17.5); Lymphocytes # (A) 0.8 k/uL (1.0-4.8); Lymphocytes % (A) 4 %; MCH 31.2 pg (25.0-35.0); MCV 91.8 fL (80.0-100.0); Mean Platelet Volume 9.4; Monocytes # (A) 0.4 k/uL (0-1.0); Monocytes % (A) 2 %; Neutrophils # (A) 18.1 k/uL (1.3-7.7); Neutrophils % (A) 93 %; Platelet Count 165 k/uL (150-450); RBC 4.83 m/uL (4.30-5.90); WBC 19.4 k/uL (3.8-10.6)
[2022-04-08] MEDS: ENOXAPARIN 40 MG/0.4 ML SYRINGE SQ SCH (08:47)
[2022-04-08] MEDS: LORATADINE 10 MG TAB PO SCH (08:48)
[2022-04-08] MEDS: FAMOTIDINE 20 MG TAB PO SCH ×2 (08:48→21:22)
[2022-04-08] MEDS: guaiFENesin 600 MG TABLET.ER PO SCH ×2 (08:48→21:22)
[2022-04-08 09:01] LABS: African American GFR (CKD) 85 (>60 ml/min/1.73 sqM); Anion Gap 8 mmol/L; Blood Urea Nitrogen 25 mg/dL (9-20); Calcium 8.8 mg/dL (8.4-10.2); Carbon Dioxide 27 mmol/L (22-30); Chloride 103 mmol/L (98-107); Glucose 195 mg/dL (74-99); Magnesium 2.3 mg/dL (1.6-2.3); Non-African American GFR(CKD) 73 (>60 ml/min/1.73 sqM); Phosphorus 2.5 mg/dL (2.5-4.5); Potassium 4.5 mmol/L (3.5-5.1); Sodium 138 mmol/L (137-145)
--- NOTE | 2022-04-08 10:38 | P.CNPUL ---
History of Present Illness Consult date: 04/08/22 Requesting physician: Ana Ha Reason for consult: dyspnea, COPD Chief complaint: Shortness of breath, cough, congestion History of present illness: This is a very pleasant 52-year-old male patient with a known history of chronic and ongoing tobacco dependence of 30 years. History of childhood asthma. No other major medical issues. No primary care provider. He was given Symbicort and albuterol inhalers at a previous hospitalization in [place]. He also stated he had a history of pulmonary nodules and was recommended a PET scan however this was approximately 2 years ago which she did not follow-up on. He recently moved back to this area. He was hospitalized for COPD exacerbation here back in February 2022. He had been doing quite well until yesterday. 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 He states these are the same chemicals he's been exposed to over 30 years and didn't feel like anything is different. However, he developed increasing shortness of breath, chest tightness cough and congestion. He attempted to use his home nebulizer and did not have any significant improvement and presented here to the emergency room for the same. No fever chills. No sick contact. No nausea vomiting or diarrhea. Chest x-ray shows no acute pulmonary process. Current virus not detected. RSV negative. Influenza screen negative. White count 19.4. Hemoglobin 15.1. Sodium 138. Potassium 4.5. BUN 25. Creatinine 1.15. Bicarb 27. He is seen today in consultation on the regular medical floor. He sitting up in bed. Awake and alert in no acute distress. Maintaining good O2 saturation 2 L/m per nasal cannula. He is afebrile. Hemodynamically stable. He had been initiated on IV solu Medrol, Pulmicort and Perforomist inhalations with DuoNeb inhalations. Joe Briceno. Review of Systems REVIEW OF SYSTEMS: CONSTITUTIONAL: Denies any recent significant weight loss or weight gain. EYES: Denies change in vision. EARS, NOSE, MOUTH, THROAT: Denies headaches, denies sore throat. CARDIOVASCULAR: Denies chest pain, palpitations or syncopal episodes. RESPIRATORY: Positive for shortness of breath, cough, congestion no hemoptysis. GASTROINTESTINAL: Denies change in appetite, denies abdominal pain GENITOURINARY: Denies hematuria, denies infections. MUSKULOSKELETAL: Denies pain, denies swelling. INTEGUMENTARY: Denies rash, denies eczema. NEUROLOGICAL: Denies recent memory loss, no recent seizure activity. PSYCHIATRIC: Denies anxiety, denies depression. HEMATOLOGIC/LYMPHATIC: Denies anemia, denies enlarged lymph nodes. Past Medical History Past Medical History: Asthma, COPD Additional Past Medical History / Comment(s): MRSA History of Any Multi-Drug Resistant Organisms: MRSA Date of last positivie culture/infection: unknown MDRO Source:: lungs Past Surgical History: Appendectomy Past Anesthesia/Blood Transfusion Reactions: No Reported Reaction Past Psychological History: No Psychological Hx Reported Smoking Status: Former smoker Past Alcohol Use History: None Reported Past Drug Use History: None Reported - Past Family History Family Family Medical History: Coronary Artery Disease (CAD) mother Family Medical History: COPD Medications and Allergies Home Medications Medication Instructions Recorded Confirmed Type Albuterol Nebulized [Ventolin 2.5 mg INHALATION RT-BID 02/12/22 04/07/22 History Nebulized] Budesonide-Formot 160-4.5 Mcg 2 puff INHALATION RT-BID 02/12/22 04/07/22 History [Symbicort 160-4.5 Mcg Inhaler] Allergies Allergy/AdvReac Type Severity Reaction Status Date / Time No Known Allergies Allergy Verified 04/07/22 15:44 Physical Exam Vitals: Vital Signs Temp Pulse Pulse Resp BP BP Pulse Ox 04/08/22 08:00 81 18 04/08/22 07:17 74 04/08/22 07:09 72 04/08/22 07:08 72 04/08/22 07:00 97.8 F 81 18 126/69 99 04/08/22 06:58 72 04/08/22 02:13 97.5 F L 69 18 111/72 93 L 04/08/22 01:17 76 18 04/07/22 20:06 76 18 04/07/22 19:39 75 04/07/22 19:30 76 04/07/22 19:28 76 04/07/22 19:21 75 04/07/22 18:46 98 F 76 18 121/72 96 04/07/22 18:33 98.5 F 04/07/22 18:09 71 20 145/79 96 04/07/22 15:49 76 04/07/22 15:41 74 04/07/22 15:34 73 15 122/70 96 04/07/22 13:40 90 04/07/22 13:31 94 04/07/22 13:09 101 H 24 143/71 94 L 04/07/22 12:57 98.9 F 94 16 113/73 93 L Intake and Output 04/07/22 04/08/22 04/08/22 22:59 06:59 14:59 Intake Total 118 Balance 118 Intake: Oral 118 Other: Voiding Method Toilet Toilet Toilet # Voids 1 2 Weight 86.183 kg GENERAL EXAM: Alert, very pleasant 52-year-old male patient, at 2 L nasal cannula, fairly, comfortable in no apparent distress. HEAD: Normocephalic. EYES: Normal reaction of pupils, equal size. NOSE: Clear with pink turbinates. THROAT: No erythema or exudates. NECK: No masses, no JVD. CHEST: No chest wall deformity. LUNGS: Equal air entry with bilateral end expiratory wheeze, diminished. CVS: S1 and S2 normal with no audible murmur, regular rhythm. ABDOMEN: No hepatosplenomegaly, normal bowel sounds, no guarding or rigidity. SPINE: No scoliosis or deformity SKIN: No rashes CENTRAL NERVOUS SYSTEM: No focal deficits, tone is normal in all 4 extremities. EXTREMITIES: There is no peripheral edema. No clubbing, no cyanosis. Peripheral pulses are intact. Results - Laboratory Findings CBC and BMP: 04/08/22 07:26 04/08/22 07:26 PT/INR, D-dimer PT 11.1 sec (9.0-12.0) 04/07/22 13:06 INR 1.0 (<1.2) 04/07/22 13:06 Abnormal lab findings: Abnormal Labs 04/07/22 04/07/22 04/08/22 13:06 13:06 07:26 WBC 19.7 H 19.4 H Neutrophils # 17.3 H 18.1 H Lymphocytes # 0.8 L Sodium 134 L BUN Glucose 136 H Magnesium 1.5 L Total Bilirubin 1.4 H 04/08/22 07:26 WBC Neutrophils # Lymphocytes # Sodium BUN 25 H Glucose 195 H Magnesium Total Bilirubin - Diagnostic Findings Chest x-ray: image reviewed Assessment and Plan Assessment: Acute hypoxemic respiratory failure secondary to an 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 Increase Pulmicort to 1 mg twice a day inhalations Add Singulair Continue steroids, bronchodilators Lovenox for DVT prophylaxis Continue Tessalon Perles and Mucinex Titrate the FiO2 as tolerated Increase his activity as tolerated Encouraged regarding the importance of continued complete smoking cessation Encouraged regarding the importance of wearing a mask while exposed to chemicals We will continue to follow and make further recommendations based on his clinical status I have personally seen and examined the patient, performed the documentation and the assessment and plan as written. Number of minutes spent on the visit: 20.
--- NOTE | 2022-04-08 11:23 | P.PN ---
Subjective Progress Note Date: 04/08/22 (delayed charting seen at 0815) Patient is a 52-year-old male with COPD and prior tobacco abuse who presented to the emergency department with complaints of shortness of breath. Patient was hospitalized here from 03/02 through 02/15/22 for acute exacerbation of COPD. He was discharged home on a steroid taper as well as Augmentin. During that stay he was noted to have pulmonary nodules too small to characterize on CT was recommended for outpatient follow-up with Dr. Del Valle. On arrival to the ER he underwent an extensive evaluation. His vital signs were within normal limits on admission. Laboratory analysis was remarkable for a white blood cell count of 19.7, sodium 134, magnesium 1.5, bilirubin 1.4. Testing for influenza, COVID- 19, and RSV was negative. Chest x-ray demonstrated no acute process. In the ER he received albuterol 3 as well as Solu-Medrol. Magnesium replacement was initiated. Arrangements were made for admission. He was continued on IV steroids and breating treatments were optimized. Pulmonary was consulted. Patient seen and exmained at bedside. Still with SOB and wheezing. He reports that he had allergy shots and testing as a teenage. He has not nausea or vomiting. He is still very short of breath when getting to the bathroom and can barely breath. General: nontoxic, no distress, appears at stated age Derm: warm, dry Head: atraumatic, normocephalic, symmetric Eyes: EOMI, no lid lag, anicteric sclera Mouth: no lip lesion, mucus membranes moist Cardiovascular: S1S2 tachycardic, no murmur, positive posterior tibial pulse bilateral, Lungs: Wheezes and rhonchi bilaterally, 3 word conversational dyspnea, no accessory muscle use Abdominal: soft, nontender to palpation, no guarding, no appreciable organomegaly Ext: no gross muscle atrophy, no edema, no contractures Neuro: CN II-XI grossly intact, no focal neuro deficits Psych: Alert, oriented, appropriate affect Assessment/Plan: Acute exacerbation of COPD Probable acute ALLERGIC reaction -Continue with steroids, bronchodilators, pulmonary hygiene - Pulmonary recommendations: Pulmicort dosing was increased, Singulair was added -Patient may benefit from outpatient ALLERGY testing as he had sudden onset of symptoms when dealing with a wild animal carcass which could have pollen, bird or other danders. Leukocytosis -Suspect reactive -Repeat CBC in a.m. Hypomagnesemia, resolved History of significant tobacco abuse Patient still with significant wheezing despite optimized therapy. Anticipate that he will take longer than another 24 hours to recover. DVT prophylaxis: Lovenox Discussed with: Patient, nursing, Dr. Osei Anticipated discharge date: In 2-[address]: Home A total of 65 minutes was spent on the care of this complex patient more than 50% of the time was spent in counseling and care coordination. Objective - Vital Signs Vital signs: Vital Signs Temp 97.8 F 04/08/22 07:00 Pulse 81 04/08/22 08:00 Resp 18 04/08/22 08:00 BP 126/69 04/08/22 07:00 Pulse Ox 99 04/08/22 07:00 FiO2 Intake & Output 04/07/22 04/08/22 04/08/22 18:59 06:59 18:59 Intake Total 118 Balance 118 Weight 86.183 kg 86.183 kg Intake: Oral 118 Other: Voiding Method Toilet Toilet # Voids 2 - Labs CBC & Chem 7: 04/08/22 07:26 04/08/22 07:26 Labs: Abnormal Lab Results - Last 24 Hours (Table) 04/07/22 04/07/22 04/08/22 Range/Units 13:06 13:06 07:26 WBC 19.7 H 19.4 H (3.8-10.6) k/uL Neutrophils # 17.3 H 18.1 H (1.3-7.7) k/uL Lymphocytes # 0.8 L (1.0-4.8) k/uL Sodium 134 L (137-145) mmol/L BUN (9-20) mg/dL Glucose 136 H (74-99) mg/dL Magnesium 1.5 L (1.6-2.3) mg/dL Total Bilirubin 1.4 H (0.2-1.3) mg/dL 04/08/22 Range/Units 07:26 WBC (3.8-10.6) k/uL Neutrophils # (1.3-7.7) k/uL Lymphocytes # (1.0-4.8) k/uL Sodium (137-145) mmol/L BUN 25 H (9-20) mg/dL Glucose 195 H (74-99) mg/dL Magnesium (1.6-2.3) mg/dL Total Bilirubin (0.2-1.3) mg/dL
[2022-04-08] MEDS: BUDESONIDE 1 MG/2 ML NEBU INHALATION SCH (19:39)
[2022-04-08] MEDS: MONTELUKAST 10 MG TAB PO SCH (21:22)
[2022-04-09] MEDS: methylPREDNISolone SOD SUCCI 125 MG/2 ML VIAL IV SCH ×3 (05:44→19:07)
[2022-04-09] MEDS: BUDESONIDE 1 MG/2 ML NEBU INHALATION SCH ×2 (08:57→20:47)
[2022-04-09] MEDS: IPRATROPIUM-ALBUTEROL 3 ML NEB INHALATION SCH ×4 (08:57→20:47)
[2022-04-09] MEDS: FORMOTEROL FUMARATE 20 MCG/2 ML NEBU INHALATION SCH ×2 (08:57→20:47)
[2022-04-09 09:09] LABS: HGB 13.6 g/dL (13.0-17.0); MCH 29.4 pg (27.0-32.0); MCHC 32.4 g/dL (32.0-37.0); MCV 90.7 fL (80.0-97.0); Mean Platelet Volume 11.1 fL (9.5-12.2); NRBC Per 100 WBC 0 /100 WBCS (0.0-0.0); Platelet Count 180 X 10*3/uL (140-440); RBC 4.63 X 10*6/uL (4.40-5.60); RDW 12.9 % (11.5-14.5); WBC 18.58 X 10*3/uL (4.50-10.00)
[2022-04-09] MEDS: LORATADINE 10 MG TAB PO SCH (09:16)
[2022-04-09] MEDS: FAMOTIDINE 20 MG TAB PO SCH ×2 (09:16→21:12)
[2022-04-09] MEDS: guaiFENesin 600 MG TABLET.ER PO SCH ×2 (09:16→21:12)
[2022-04-09] MEDS: ENOXAPARIN 40 MG/0.4 ML SYRINGE SQ SCH (09:16)
[2022-04-09 09:32] LABS: Anion Gap 10.9 mmol/L (10.00-18.00); Blood Urea Nitrogen 25.3 mg/dL (9.0-27.0); Calcium 9.1 mg/dL (8.7-10.3); Carbon Dioxide 24.1 mmol/L (20.0-27.5); Non-African American GFR(CKD) 76.8 (60.0-200.0); Potassium 4.7 mmol/L (3.5-5.5)
--- NOTE | 2022-04-09 10:58 | P.PN ---
Subjective Progress Note Date: 04/09/22 This is a very pleasant 52-year-old male patient with a known history of chronic and ongoing tobacco dependence of 30 years. History of childhood asthma. No other major medical issues. No primary care provider. He was given Symbicort and albuterol inhalers at a previous hospitalization in [place]. He also stated he had a history of pulmonary nodules and was recommended a PET scan however this was approximately 2 years ago which she did not follow-up on. He recently moved back to this area. He was hospitalized for COPD exacerbation here back in February 2022. He had been doing quite well until yesterday. 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 He states these are the same chemicals he's been exposed to over 30 years and didn't feel like anything is different. However, he developed increasing shortness of breath, chest tightness cough and congestion. He attempted to use his home nebulizer and did not have any significant improvement and presented here to the emergency room for the same. No fever chills. No sick contact. No nausea vomiting or diarrhea. Chest x-ray shows no acute pulmonary process. Current virus not detected. RSV negative. Influenza screen negative. White count 19.4. Hemoglobin 15.1. Sodium 138. Potassium 4.5. BUN 25. Creatinine 1.15. Bicarb 27. He is seen today in consultation on the regular medical floor. He sitting up in bed. Awake and alert in no acute distress. Maintaining good O2 saturation 2 L/m per nasal cannula. He is afebrile. Hemodynamically stable. He had been initiated on IV solu Medrol, Pulmicort and Perforomist inhalations with DuoNeb inhalations. Tessalon Perles. The patient is seen today 04/09/2022 in follow-up on the regular medical floor. He is currently sitting up in bed. Awake and alert in no acute distress. Less bronchospastic and wheezy today. Still not quite back to his baseline. Some chest wall discomfort from coughing. He is maintaining O2 saturations in the 90s on 2 L/m per nasal cannula. He is continued on IV solu Medrol, Pulmicort and Perforomist inhalations with DuoNeb inhalations, Tessalon Perles. Lovenox for DVT prophylaxis. White count 18.5. Hemoglobin 13.6. Sodium 136. Potassium 4.7. Bicarb 21. BUN 25. Creatinine 1.1. Glucose 224. Objective - Vital Signs Vital signs: Vital Signs Temp 97.8 F 04/09/22 07:20 Pulse 72 04/09/22 09:24 Resp 16 04/09/22 07:20 BP 127/70 04/09/22 07:20 Pulse Ox 96 04/09/22 09:15 FiO2 Intake & Output 04/08/22 04/09/22 04/09/22 18:59 06:59 18:59 Intake Total 236 240 Balance 236 240 Intake: Oral 236 240 Other: Voiding Method Toilet Toilet # Voids 2 1 - Exam GENERAL EXAM: Alert, active, pleasant 52-year-old male, on 2 L nasal cannula, comfortable in no apparent distress. HEAD: Normocephalic. EYES: Normal reaction of pupils, equal size. NOSE: Clear with pink turbinates. THROAT: No erythema or exudates. NECK: No masses, no JVD. CHEST: No chest wall deformity. LUNGS: Equal air entry with bilateral end expiratory wheeze. CVS: S1 and S2 normal with no audible murmur, regular rhythm. ABDOMEN: No hepatosplenomegaly, normal bowel sounds, no guarding or rigidity. SPINE: No scoliosis or deformity SKIN: No rashes CENTRAL NERVOUS SYSTEM: No focal deficits, tone is normal in all 4 extremities. EXTREMITIES: There is no peripheral edema. No clubbing, no cyanosis. Peripheral pulses are intact. - Labs CBC & Chem 7: 04/09/22 05:37 04/09/22 05:37 Labs: Abnormal Lab Results - Last 24 Hours (Table) 04/08/22 04/09/22 04/09/22 Range/Units 07:26 05:37 05:37 WBC 18.58 H (4.50-10.00) X 10*3/uL BUN/Creatinine Ratio 23.00 H (12.00-20.00) Ratio Glucose 224 H (70-110) mg/dL Vitamin D 25-Hydroxy 15.9 L (30.0-100.0) ng/mL Assessment and Plan Assessment: Acute hypoxemic respiratory failure secondary to an acute exacerbation of chronic obstructive pulmonary disease History of chronic obstructive pulmonary disease History of childhood asthma, mild intermittent chronic History of 30+ years of chronic tobacco dependence Plan: The patient was seen and evaluated Medications and labs reviewed. Continue steroids, bronchodilators Continue Tessalon Perles and Mucinex Titrate the FiO2 as tolerated Increase his activity as tolerated Improved but not quite back to his baseline Probable discharge in the a.m. We will continue to follow I have personally seen and examined the patient, performed the documentation and the assessment and plan as written. Number of minutes spent on the visit: 10.
[2022-04-09 11:01] LABS: Total Protein 5.6 g/dL (6.2-8.2)
--- NOTE | 2022-04-09 15:26 | P.PN ---
Subjective Progress Note Date: 04/09/22 Patient is a 52-year-old male with COPD and prior tobacco abuse who presented to the emergency department with complaints of shortness of breath. Patient was hospitalized here from 03/02 through 02/15/22 for acute exacerbation of COPD. He was discharged home on a steroid taper as well as Augmentin. During that stay he was noted to have pulmonary nodules too small to characterize on CT was recommended for outpatient follow-up with Dr. Del Valle. On arrival to the ER he underwent an extensive evaluation. His vital signs were within normal limits on admission. Laboratory analysis was remarkable for a white blood cell count of 19.7, sodium 134, magnesium 1.5, bilirubin 1.4. Testing for influenza, COVID- 19, and RSV was negative. Chest x-ray demonstrated no acute process. In the ER he received albuterol 3 as well as Solu-Medrol. Magnesium replacement was initiated. Arrangements were made for admission. He was continued on IV steroids and breating treatments were optimized. Pulmonary was consulted. Patient seen and examined at bedside. States that his breathing is improving slowly. Complains of a wet cough. States that he is 60% better. He reports that he had allergy shots and testing as a teenage. He is still very short of breath when getting to the bathroom. General: nontoxic, no distress, appears at stated age Derm: warm, dry Head: atraumatic, normocephalic, symmetric Eyes: EOMI, no lid lag, anicteric sclera Mouth: no lip lesion, mucus membranes moist Cardiovascular: S1S2 tachycardic, no murmur Lungs: Wheezes and rhonchi bilaterally, 5 word conversational dyspnea, no access ory muscle use Ext: no gross muscle atrophy, no edema, no contractures Neuro: no focal neuro deficits Psych: Alert, oriented, appropriate affect #Acute exacerbation of COPD #Probable acute ALLERGIC reaction -History of significant tobacco abuse -Continue with steroids, bronchodilators, pulmonary hygiene -Pulmonary recommendations: Pulmicort dosing was increased, Singulair was added -Patient may benefit from outpatient ALLERGY testing as he had sudden onset of symptoms when dealing with a wild animal carcass which could have pollen, bird or other danders. #Leukocytosis -Suspect reactive -Repeat CBC in a.m. Resolved: Hypomagnesemia Anticipate DC home tomorrow if patient continues to show improvement. Objective - Vital Signs Vital signs: Vital Signs Temp 97.8 F 04/09/22 07:20 Pulse 82 04/09/22 12:04 Resp 16 04/09/22 07:20 BP 127/70 04/09/22 07:20 Pulse Ox 96 04/09/22 09:15 FiO2 Intake & Output 04/08/22 04/09/22 04/09/22 18:59 06:59 18:59 Intake Total 236 240 Balance 236 240 Intake: Oral 236 240 Other: Voiding Method Toilet Toilet # Voids 2 1 - Labs CBC & Chem 7: 04/09/22 05:37 04/09/22 05:37 Labs: Abnormal Lab Results - Last 24 Hours (Table) 04/09/22 04/09/22 04/09/22 Range/Units 05:37 05:37 05:37 WBC 18.58 H (4.50-10.00) X 10*3/uL BUN/Creatinine Ratio 23.00 H (12.00-20.00) Ratio Glucose 224 H (70-110) mg/dL Total Protein 5.6 L (6.2-8.2) g/dL
[2022-04-09] MEDS: MONTELUKAST 10 MG TAB PO SCH (21:12)
[2022-04-10] MEDS: methylPREDNISolone SOD SUCCI 125 MG/2 ML VIAL IV SCH ×5 (00:13→23:06)
[2022-04-10] MEDS: IPRATROPIUM-ALBUTEROL 3 ML NEB INHALATION SCH ×4 (07:08→20:14)
[2022-04-10] MEDS: FORMOTEROL FUMARATE 20 MCG/2 ML NEBU INHALATION SCH ×2 (07:08→20:14)
[2022-04-10] MEDS: BUDESONIDE 1 MG/2 ML NEBU INHALATION SCH ×2 (07:08→20:14)
[2022-04-10] MEDS: FAMOTIDINE 20 MG TAB PO SCH ×2 (09:49→21:52)
[2022-04-10] MEDS: ENOXAPARIN 40 MG/0.4 ML SYRINGE SQ SCH (09:49)
[2022-04-10] MEDS: LORATADINE 10 MG TAB PO SCH (09:49)
[2022-04-10] MEDS: guaiFENesin 600 MG TABLET.ER PO SCH ×2 (09:49→21:52)
--- NOTE | 2022-04-10 11:47 | P.PN ---
Subjective Progress Note Date: 04/10/22 This is a very pleasant 52-year-old male patient with a known history of chronic and ongoing tobacco dependence of 30 years. History of childhood asthma. No other major medical issues. No primary care provider. He was given Symbicort and albuterol inhalers at a previous hospitalization in [place]. He also stated he had a history of pulmonary nodules and was recommended a PET scan however this was approximately 2 years ago which she did not follow-up on. He recently moved back to this area. He was hospitalized for COPD exacerbation here back in February 2022. He had been doing quite well until yesterday. 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 He states these are the same chemicals he's been exposed to over 30 years and didn't feel like anything is different. However, he developed increasing shortness of breath, chest tightness cough and congestion. He attempted to use his home nebulizer and did not have any significant improvement and presented here to the emergency room for the same. No fever chills. No sick contact. No nausea vomiting or diarrhea. Chest x-ray shows no acute pulmonary process. Current virus not detected. RSV negative. Influenza screen negative. White count 19.4. Hemoglobin 15.1. Sodium 138. Potassium 4.5. BUN 25. Creatinine 1.15. Bicarb 27. He is seen today in consultation on the regular medical floor. He sitting up in bed. Awake and alert in no acute distress. Maintaining good O2 saturation 2 L/m per nasal cannula. He is afebrile. Hemodynamically stable. He had been initiated on IV solu Medrol, Pulmicort and Perforomist inhalations with DuoNeb inhalations. Tessalon Perles. The patient is seen today 04/09/2022 in follow-up on the regular medical floor. He is currently sitting up in bed. Awake and alert in no acute distress. Less bronchospastic and wheezy today. Still not quite back to his baseline. Some chest wall discomfort from coughing. He is maintaining O2 saturations in the 90s on 2 L/m per nasal cannula. He is continued on IV solu Medrol, Pulmicort and Perforomist inhalations with DuoNeb inhalations, Tessalon Perles. Lovenox for DVT prophylaxis. White count 18.5. Hemoglobin 13.6. Sodium 136. Potassium 4.7. Bicarb 21. BUN 25. Creatinine 1.1. Glucose 224. The patient is seen today 04/10/2022 in follow-up on the regular medical floor. He is awake and alert in no acute distress. Sitting up in bed. Maintaining O2 saturations in the 90s on room air. He states he did have a rough night of frequent coughing and shortness of breath. Doing a little worse today compared to yesterday. He remains quite bronchospastic and wheezy. He is continued on DuoNeb inhalations, Pulmicort and Perforomist inhalations, IV Solu-Medrol and Singulair. Tessalon Perles and Mucinex for his cough. No new labs today. Objective - Vital Signs Vital signs: Vital Signs Temp 98.0 F 04/10/22 08:00 Pulse 78 04/10/22 11:00 Resp 20 04/10/22 09:52 BP 134/72 04/10/22 08:00 Pulse Ox 94 L 04/10/22 08:00 FiO2 Intake & Output 04/09/22 04/10/22 04/10/22 18:59 06:59 18:59 Intake Total 240 Balance 240 Intake: Oral 240 Other: Voiding Method Toilet # Voids 3 1 # Bowel Movements 1 - Exam GENERAL EXAM: Alert, pleasant 52-year-old male, on room air, comfortable in no apparent distress. HEAD: Normocephalic. EYES: Normal reaction of pupils, equal size. NOSE: Clear with pink turbinates. THROAT: No erythema or exudates. NECK: No masses, no JVD. CHEST: No chest wall deformity. LUNGS: Equal air entry with bilateral end expiratory wheeze. CVS: S1 and S2 normal with no audible murmur, regular rhythm. ABDOMEN: No hepatosplenomegaly, normal bowel sounds, no guarding or rigidity. SPINE: No scoliosis or deformity SKIN: No rashes CENTRAL NERVOUS SYSTEM: No focal deficits, tone is normal in all 4 extremities. EXTREMITIES: There is no peripheral edema. No clubbing, no cyanosis. Peripheral pulses are intact. - Labs CBC & Chem 7: 04/09/22 05:37 04/09/22 05:37 Assessment and Plan Assessment: Acute hypoxemic respiratory failure secondary to an acute exacerbation of chronic obstructive pulmonary disease History of chronic obstructive pulmonary disease History of childhood asthma, mild intermittent chronic History of 30+ years of chronic tobacco dependence Plan: The patient was seen and evaluated Not quite back to his baseline Medications reviewed Continue steroids, bronchodilators Continue Tessalon Perles and Mucinex Not quite ready for discharge Add flutter valve We will continue to follow I have personally seen and examined the patient, performed the documentation and the assessment and plan as written. Number of minutes spent on the visit: 10.
--- NOTE | 2022-04-10 14:43 | P.PN ---
Subjective Progress Note Date: 04/10/22 Patient is a 52-year-old male with COPD and prior tobacco abuse who presented to the emergency department with complaints of shortness of breath. Patient was hospitalized here from 03/02 through 02/15/22 for acute exacerbation of COPD. He was discharged home on a steroid taper as well as Augmentin. During that stay he was noted to have pulmonary nodules too small to characterize on CT was recommended for outpatient follow-up with Dr. Del Valle. On arrival to the ER he underwent an extensive evaluation. His vital signs were within normal limits on admission. Laboratory analysis was remarkable for a white blood cell count of 19.7, sodium 134, magnesium 1.5, bilirubin 1.4. Testing for influenza, COVID- 19, and RSV was negative. Chest x-ray demonstrated no acute process. In the ER he received albuterol 3 as well as Solu-Medrol. Magnesium replacement was initiated. Arrangements were made for admission. He was continued on IV steroids and breating treatments were optimized. Pulmonary was consulted. Patient seen and examined at bedside. States that his breathing has not improved since yesterday. He is still very short of breath when getting to the bathroom. General: nontoxic, no distress, appears at stated age Derm: warm, dry Head: atraumatic, normocephalic, symmetric Eyes: EOMI, no lid lag, anicteric sclera Mouth: no lip lesion, mucus membranes moist Cardiovascular: S1S2 tachycardic, no murmur Lungs: Wheezes and rhonchi bilaterally, 5 word conversational dyspnea, no accessory muscle use Ext: no gross muscle atrophy, no edema, no contractures Neuro: no focal neuro deficits Psych: Alert, oriented, appropriate affect #Acute exacerbation of COPD #Probable acute ALLERGIC reaction -History of significant tobacco abuse -Continue with steroids, bronchodilators, pulmonary hygiene -Pulmonary recommendations: Pulmicort dosing was increased, Singulair was added -Patient may benefit from outpatient ALLERGY testing as he had sudden onset of symptoms when dealing with a wild animal carcass which could have pollen, bird or other danders #Leukocytosis -Suspect reactive -Repeat CBC in AM Resolved: Hypomagnesemia Anticipate DC home tomorrow if patient continues to show improvement. Objective - Vital Signs Vital signs: Vital Signs Temp 98.0 F 04/10/22 08:00 Pulse 78 04/10/22 11:00 Resp 20 04/10/22 09:52 BP 134/72 04/10/22 08:00 Pulse Ox 94 L 04/10/22 08:00 FiO2 Intake & Output 04/09/22 04/10/22 04/10/22 18:59 06:59 18:59 Intake Total 240 Balance 240 Intake: Oral 240 Other: Voiding Method Toilet # Voids 3 1 # Bowel Movements 1 - Labs CBC & Chem 7: 04/09/22 05:37 04/09/22 05:37
[2022-04-10] MEDS: MONTELUKAST 10 MG TAB PO SCH (21:52)
[2022-04-11] MEDS: methylPREDNISolone SOD SUCCI 125 MG/2 ML VIAL IV SCH (06:31)
[2022-04-11] MEDS: FORMOTEROL FUMARATE 20 MCG/2 ML NEBU INHALATION SCH (07:19)
[2022-04-11] MEDS: BUDESONIDE 1 MG/2 ML NEBU INHALATION SCH (07:19)
[2022-04-11] MEDS: IPRATROPIUM-ALBUTEROL 3 ML NEB INHALATION SCH ×2 (07:19→11:06)
[2022-04-11 08:04] VITALS: BP 149/85; RESP 16; TEMP 97.5
[2022-04-11] MEDS: FAMOTIDINE 20 MG TAB PO SCH (09:05)
[2022-04-11] MEDS: guaiFENesin 600 MG TABLET.ER PO SCH (09:05)
[2022-04-11] MEDS: ENOXAPARIN 40 MG/0.4 ML SYRINGE SQ SCH (09:05)
[2022-04-11] MEDS: LORATADINE 10 MG TAB PO SCH (09:05)
--- NOTE | 2022-04-11 10:01 | P.PN ---
Subjective Progress Note Date: 04/11/22 This is a very pleasant 52-year-old male patient with a known history of chronic and ongoing tobacco dependence of 30 years. History of childhood asthma. No other major medical issues. No primary care provider. He was given Symbicort and albuterol inhalers at a previous hospitalization in [place]. He also stated he had a history of pulmonary nodules and was recommended a PET scan however this was approximately 2 years ago which she did not follow-up on. He recently moved back to this area. He was hospitalized for COPD exacerbation here back in February 2022. He had been doing quite well until yesterday. 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 He states these are the same chemicals he's been exposed to over 30 years and didn't feel like anything is different. However, he developed increasing shortness of breath, chest tightness cough and congestion. He attempted to use his home nebulizer and did not have any significant improvement and presented here to the emergency room for the same. No fever chills. No sick contact. No nausea vomiting or diarrhea. Chest x-ray shows no acute pulmonary process. Current virus not detected. RSV negative. Influenza screen negative. White count 19.4. Hemoglobin 15.1. Sodium 138. Potassium 4.5. BUN 25. Creatinine 1.15. Bicarb 27. He is seen today in consultation on the regular medical floor. He sitting up in bed. Awake and alert in no acute distress. Maintaining good O2 saturation 2 L/m per nasal cannula. He is afebrile. Hemodynamically stable. He had been initiated on IV solu Medrol, Pulmicort and Perforomist inhalations with DuoNeb inhalations. Tessalon Perles. The patient is seen today 04/09/2022 in follow-up on the regular medical floor. He is currently sitting up in bed. Awake and alert in no acute distress. Less bronchospastic and wheezy today. Still not quite back to his baseline. Some chest wall discomfort from coughing. He is maintaining O2 saturations in the 90s on 2 L/m per nasal cannula. He is continued on IV solu Medrol, Pulmicort and Perforomist inhalations with DuoNeb inhalations, Tessalon Perles. Lovenox for DVT prophylaxis. White count 18.5. Hemoglobin 13.6. Sodium 136. Potassium 4.7. Bicarb 21. BUN 25. Creatinine 1.1. Glucose 224. The patient is seen today 04/10/2022 in follow-up on the regular medical floor. He is awake and alert in no acute distress. Sitting up in bed. Maintaining O2 saturations in the 90s on room air. He states he did have a rough night of frequent coughing and shortness of breath. Doing a little worse today compared to yesterday. He remains quite bronchospastic and wheezy. He is continued on DuoNeb inhalations, Pulmicort and Perforomist inhalations, IV Solu-Medrol and Singulair. Tessalon Perles and Mucinex for his cough. No new labs today. The patient is seen today 04/11/2022 in follow-up on the regular medical floor. He sitting up in bed. Awake and alert in no acute distress. 18 O2 saturation in the upper 90s on room air. Afebrile. Hemodynamically stable. Feeling much better today. Nearly back to his baseline. No new labs today. He is continued on DuoNeb inhalations, Pulmicort and Perforomist inhalations, IV Solu-Medrol, Singulair. Objective - Vital Signs Vital signs: Vital Signs Temp 97.5 F L 04/11/22 08:00 Pulse 83 04/11/22 08:00 Resp 16 04/11/22 08:00 BP 149/85 04/11/22 08:00 Pulse Ox 98 04/11/22 08:00 FiO2 Intake & Output 04/10/22 04/11/22 04/11/22 18:59 06:59 18:59 Intake Total 218 Balance 218 Intake: Oral 218 Other: Voiding Method Toilet # Voids 2 - Exam GENERAL EXAM: Alert, 52-year-old male, on room air, comfortable in no apparent distress. HEAD: Normocephalic. EYES: Normal reaction of pupils, equal size. NOSE: Clear with pink turbinates. THROAT: No erythema or exudates. NECK: No masses, no JVD. CHEST: No chest wall deformity. LUNGS: Equal air entry with bilateral end expiratory wheeze. CVS: S1 and S2 normal with no audible murmur, regular rhythm. ABDOMEN: No hepatosplenomegaly, normal bowel sounds, no guarding or rigidity. SPINE: No scoliosis or deformity SKIN: No rashes CENTRAL NERVOUS SYSTEM: No focal deficits, tone is normal in all 4 extremities. EXTREMITIES: There is no peripheral edema. No clubbing, no cyanosis. Peripheral pulses are intact. - Labs CBC & Chem 7: 04/09/22 05:37 04/09/22 05:37 Assessment and Plan Assessment: Acute hypoxemic respiratory failure secondary to an acute exacerbation of chronic obstructive pulmonary disease History of chronic obstructive pulmonary disease History of childhood asthma, mild intermittent chronic History of 30+ years of chronic tobacco dependence Plan: The patient was seen and evaluated Cleared for discharge from the pulmonary standpoint Complete prednisone taper starting at 40 mg 4 days Continue his home Symbicort and albuterol Keep his appointment in our office later this month He is encouraged to call sooner with any recurrence of symptoms I have personally seen and examined the patient, performed the documentation and the assessment and plan as written. Number of minutes spent on the visit: 10.
[2022-04-11 11:18] VITALS: PULSE 64
--- NOTE | 2022-04-11 11:26 | P.DS ---
Providers Date of admission: 04/08/22 12:05 Expected date of discharge: 04/11/22 Attending physician: Divina Tate MD Consults: 04/07/22 15:43 Consult Physician Routine Consulting Provider: Dorian Del Valle Reason/Comments: COPD Do you want consulting provider notified?: Yes Primary care physician: Stated None Hospital Course: Patient is a 52-year-old male with COPD and prior tobacco abuse who presented to the emergency department with complaints of shortness of breath. Patient was hospitalized here from 03/02 through 02/15/22 for acute exacerbation of COPD. He was discharged home on a steroid taper as well as Augmentin. During that stay he was noted to have pulmonary nodules too small to characterize on CT was recommended for outpatient follow-up with Dr. Del Valle. On arrival to the ER he underwent an extensive evaluation. His vital signs were within normal limits on admission. Laboratory analysis was remarkable for a white blood cell count of 19.7, sodium 134, magnesium 1.5, bilirubin 1.4. Testing for influenza, COVID- 19, and RSV was negative. Chest x-ray demonstrated no acute process. In the ER he received albuterol 3 as well as Solu-Medrol. Magnesium replacement was initiated. Arrangements were made for admission. He was continued on IV steroids and breathing treatments were optimized. Pulmonary was consulted and followed the patient during his hospitalization. His breathing slowly improved. Patient was discharged on DuoNeb PRN, Prednisone taper, Symbicort, Singulair, Mucinex, Tessalon PRN and Claritin. He is advised to follow up with Pulmonology within 1 week of discharge. Patient seen and examined at bedside. States that his breathing has significantly improved since yesterday. Requesting to go home. Pertinent studies include CXR. General: nontoxic, no distress, appears at stated age Derm: warm, dry Head: atraumatic, normocephalic, symmetric Eyes: EOMI, no lid lag, anicteric sclera Mouth: no lip lesion, mucus membranes moist Cardiovascular: S1S2 normal, no murmur Lungs: Wheezes and rhonchi scattered, no accessory muscle use Ext: no gross muscle atrophy, no edema, no contractures Neuro: no focal neuro deficits Psych: Alert, oriented, appropriate affect Discharge Diagnosis: #Acute exacerbation of COPD #Probable acute ALLERGIC reaction #Leukocytosis Resolved: Hypomagnesemia This complex discharge took 35 minutes to complete. Patient Condition at Discharge: Stable Plan - Discharge Summary Discharge Rx Participant: No New Discharge Prescriptions: New Ipratropium-Albuterol Nebulize [Duoneb 0.5 mg-3 mg/3 ml Soln] 3 ml INHALATION RT-QID PRN #120 each PRN Reason: Shortness Of Breath guaiFENesin [Mucinex] 600 mg PO Q12HR #30 tab Famotidine [Pepcid] 20 mg PO BID #60 tab Montelukast [Singulair] 10 mg PO HS #30 tab Benzonatate [Tessalon Perles] 100 mg PO TID PRN #30 cap PRN Reason: Cough Loratadine [Claritin] 10 mg PO DAILY #30 tab predniSONE See Taper PO DIRECTED #30 tab Continue Budesonide-Formot 160-4.5 Mcg [Symbicort 160-4.5 Mcg Inhaler] 2 puff INHALATION RT-BID #1 each Discontinued Albuterol Nebulized [Ventolin Nebulized] 2.5 mg INHALATION RT-BID Discharge Medication List Benzonatate [Tessalon Perles] 100 mg PO TID PRN #30 cap 04/11/22 [Rx] Budesonide-Formot 160-4.5 Mcg [Symbicort 160-4.5 Mcg Inhaler] 2 puff INHALATION RT-BID #1 each 04/11/22 [Rx] Famotidine [Pepcid] 20 mg PO BID #60 tab 04/11/22 [Rx] Ipratropium-Albuterol Nebulize [Duoneb 0.5 mg-3 mg/3 ml Soln] 3 ml INHALATION RT-QID PRN #120 each 04/11/22 [Rx] Loratadine [Claritin] 10 mg PO DAILY #30 tab 04/11/22 [Rx] Montelukast [Singulair] 10 mg PO HS #30 tab 04/11/22 [Rx] guaiFENesin [Mucinex] 600 mg PO Q12HR #30 tab 04/11/22 [Rx] predniSONE See Taper PO DIRECTED #30 tab 04/11/22 [Rx] Follow up Appointment(s)/Referral(s): Dorian Del Valle DO [Doctor of Osteopathic Medicine] - 04/30/22 10:00 am None,Stated [Primary Care Provider] - 1-2 days Discharge Disposition: HOME SELF-CARE
== END 2022-04-11 12:58 | disposition home or self-care (01) | DRG 190 ==
LOC: EC 12:52 → 6NMEDSUR 15:01 → OBSVTOIN 04-08 12:05 → 6NMEDSUR 04-09 23:32
PROVIDERS: ADMIT Family Medicine; ATTEND Family Medicine
DX: J44.1 Chronic obstructive pulmonary disease with (acute) exacerbation (principal); J96.01 Acute respiratory failure with hypoxia; D72.829 Elevated white blood cell count, unspecified; E83.42 Hypomagnesemia; J45.20 Mild intermittent asthma, uncomplicated; R00.0 Tachycardia, unspecified; Z79.51 Long term (current) use of inhaled steroids; Z87.891 Personal history of nicotine dependence; Z87.09 Personal history of other diseases of the respiratory system; Z71.6 Tobacco abuse counseling; Z20.822 Contact with and (suspected) exposure to COVID-19; Z86.14 Personal history of Methicillin resistant Staphylococcus aureus infection
CPT/HCPCS: 36415; 71046; 80048; 80053; 81003; 82306; 82803; 83605; 83615; 83735; 84100; 84155; 84484; 85025; 85027; 85610; 85730; 87636; 93005; 94640; 94667; 94668; 94760; 96365; 96366; 96375; 96376; 99285